=== PATIENT | female | born 1985 | race Caucasian/White ===

== ENCOUNTER 2024-12-03 09:25 | Emergency (ER) | payer OTHER, SELFPAY ==
[2024-12-03 09:28] VITALS: BP 175/97; PULSE 58; TEMP 36.6; O2SAT 100; BMI 43.5
--- NOTE | 2024-12-03 09:39 | XR_ITS ---
The [address] [address] Patient Name: GO NORTH MRN: [id number] date: 1985 Sex: F Assigned Patient Location: ER Current Patient Location: Accession/Order Number: [id number] Exam Date: 12/03/2024 09:58 Report Date: 12/03/2024 10:36 At the request of: HUMZA CORCORAN Procedure: XR foot RT min 3V HISTORY: Pain and swelling of the right foot and ankle for the past 4 days. The patient reportedly has a history of prior surgery on the right foot several years ago. 3 views right ankle 12/03/2024. 3 views right foot 12/03/2024. COMPARISON: Radiographs right ankle 03/07/2022. FINDINGS: Right ankle: No acute fracture or dislocation is seen. Large plantar calcaneal enthesophyte is again seen. There is a similar appearance of a linear lucency extending transversely over the distal fibular metadiaphysis compatible with the sequela of remote trauma and/or prior surgery in this region. There is an os peroneum again seen along the lateral aspect of the calcaneus. No significant joint space narrowing is seen. Right foot: No fracture, dislocation or joint space narrowing is seen. There is a hallux valgus deformity. No significant soft tissue swelling is seen. XR/XR foot RT min 3V IMPRESSION: 1. No acute fracture or dislocation of the right foot or ankle is seen. 2. A large plantar calcaneal enthesophyte is again seen. Electronically authenticated by: OVI SHEPPARD Date: 12/03/2024 10:36
--- NOTE | 2024-12-03 09:39 | XR_ITS ---
The [address] [address] Patient Name: GO NORTH MRN: [id number] date: 1985 Sex: F Assigned Patient Location: ER Current Patient Location: ER Accession/Order Number: [id number] Exam Date: 12/03/2024 09:58 Report Date: 12/03/2024 10:36 At the request of: HUMZA CORCORAN Procedure: XR ankle RT min 3V HISTORY: Pain and swelling of the right foot and ankle for the past 4 days. The patient reportedly has a history of prior surgery on the right foot several years ago. 3 views right ankle 12/03/2024. 3 views right foot 12/03/2024. COMPARISON: Radiographs right ankle 03/07/2022. FINDINGS: Right ankle: No acute fracture or dislocation is seen. Large plantar calcaneal enthesophyte is again seen. There is a similar appearance of a linear lucency extending transversely over the distal fibular metadiaphysis compatible with the sequela of remote trauma and/or prior surgery in this region. There is an os peroneum again seen along the lateral aspect of the calcaneus. No significant joint space narrowing is seen. Right foot: No fracture, dislocation or joint space narrowing is seen. There is a hallux valgus deformity. No significant soft tissue swelling is seen. XR/XR ankle RT min 3V IMPRESSION: 1. No acute fracture or dislocation of the right foot or ankle is seen. 2. A large plantar calcaneal enthesophyte is again seen. Electronically authenticated by: OVI SHEPPARD Date: 12/03/2024 10:36
--- NOTE | 2024-12-03 10:21 | US_ITS ---
[place] [id number] Patient Name: GO NORTH MRN: [id number] date: 1985 Sex: F Assigned Patient Location: ER Current Patient Location: ER Accession/Order Number: [id number] Exam Date: 12/03/2024 10:22 Report Date: 12/03/2024 11:05 At the request of: HUMZA CORCORAN Procedure: US venous doppler LE RT EXAM: US venous doppler LE RT HISTORY: R leg pain swelling COMPARISON: None. TECHNIQUE: Grayscale, color and Doppler FINDINGS: Region: Right leg Thrombus: None Flow: Normal Compressibility: Normal Augmentation: Normal US/US venous doppler LE RT IMPRESSION: No deep or superficial vein thrombus in the right leg Electronically authenticated by: CHARI REN Date: 12/03/2024 11:05
--- NOTE | 2024-12-03 10:25 | ED_ITS ---
HPI HPI - General Adult General Chief complaint: Extremity Problem, Nontraumatic Stated complaint: LOWER EXTREMITY SWELLING Time Seen by Provider: 12/03/24 09:26 Source: patient Mode of arrival: walk-in History of Present Illness HPI narrative: Patient seen complaining right lower extremity pain. She has a history of ankle and foot reconstructive surgery twice in the past. She said it has been about 2 years ago. She started to develop some pain and swelling and she has a little red joy on the anterior lower faustin. She also complains of pain behind the knee and some calf pain. She was worried about a blood clot so she came into the ER. She is not tachycardic she is not short of breath no chest pain. Oxygen saturation 100%. No fevers. No other complaints at this time. Related Data Previous Rx's ?Medication ?Instructions ?Recorded hydrocodone 5 mg-acetaminophen 325 1 tab PO Q6H PRN pain #10 tabs 12/03/24 mg tablet Allergies Allergy/AdvReac Type Severity Reaction Status Date / Time No Known Drug Allergies Allergy Verified 12/03/24 09:28 Opioid HPI Opioid Management Most Recent Opioid Data: No Data to Display Review of Systems ROS Status of ROS 10 or more systems reviewed and unremark able except as noted in history and below PFSH PFSH Social History Little interest or pleasure in doing things: not at all Feeling down, depressed, or hopeless: not at all Exam Narrative Exam Narrative: General: alert, no acute distress Cardiovascular: regular rate and rhythm, normal peripheral perfusion. Respiratory: Lungs CTA, respirations non labored. Extremities: Tenderness to palpation around the ankle joint area and calf and behind the knee. Very mild swelling. Old surgical scars. Normal distal pulses and sensation. Neurological: oriented x 4, LOC appropriate for age. Constitutional Vital Signs, click to edit/add: Last Vital Signs Temp 97.8 F 12/03/24 09:28 Pulse 58 L 12/03/24 09:28 Resp 16 12/03/24 09:28 BP 175/97 H 12/03/24 09:28 Pulse Ox 100 12/03/24 09:28 O2 Del Method Room Air 12/03/24 09:28 Course Vital Signs Vital signs: Vital Signs Temperature 97.8 F 12/03/24 09:28 Pulse Rate 58 L 12/03/24 09:28 Respiratory Rate 16 12/03/24 09:28 Blood Pressure 175/97 H 12/03/24 09:28 Pulse Oximetry 100 12/03/24 09:28 Oxygen Delivery Method Room Air 12/03/24 09:28 Temperature 97.8 F 12/03/24 09:28 Pulse Rate 58 L 12/03/24 09:28 Respiratory Rate 16 12/03/24 09:28 Blood Pressure 175/97 H 12/03/24 09:28 Pulse Oximetry 100 12/03/24 09:28 Oxygen Delivery Method Room Air 12/03/24 09:28 Medical Decision Making MDM Narrative Medical decision making narrative: Patient's x-ray are negative for acute findings. Doppler study negative for any DVT. I do not see any signs of joint infection or cellulitis. Most likely arthritic changes causing some pain and swelling. Patient placed in Jacobo wrap and counseled on compression stockings. Pain medication for home. Follow-up with her orthopedic doctor as needed. Return to ED if worsening symptoms or other concerns. Patient is comfortable care plan for home. Differential Diagnosis Differential Diagnosis: Fracture sprain strain dislocation DVT cellulitis Imaging Data Chest x-ray: Radiologist's impression: ITS Impressions Ankle X-Ray 12/03/24 09:39 IMPRESSION: 1. No acute fracture or dislocation of the right foot or ankle is seen. 2. A large plantar calcaneal enthesophyte is again seen. Electronically authenticated by: OVI SHEPPARD Date: 12/03/2024 10:36 Foot X-Ray 12/03/24 09:39 IMPRESSION: 1. No acute fracture or dislocation of the right foot or ankle is seen. 2. A large plantar calcaneal enthesophyte is again seen. Electronically authenticated by: OVI SHEPPARD Date: 12/03/2024 10:36 Venous Doppler Study 12/03/24 10:21 IMPRESSION: No deep or superficial vein thrombus in the right leg Electronically authenticated by: CHARI REN Date: 12/03/2024 11:05 Discharge Plan Discharge Chief Complaint: Extremity Problem, Nontraumatic Clinical Impression: Ankle arthritis Patient Disposition: Home, Self-Care Time of Disposition Decision: 11:10 Condition: Good Mode of Transportation: Private Vehicle Prescriptions / Home Meds: New hydrocodone-acetaminophen 5-325 mg tablet 1 tab PO Q6H PRN (Reason: pain) Qty: 10 0RF Print Language: Montenegrin Instructions: Arthritis (ED) Referrals: Physician,Non-Staff, MD [Primary Care Provider] - 1 week Discharge Date/Time: 12/03/24 11:26
== END 2024-12-03 11:26 | disposition home or self-care (01) ==
PROVIDERS: Emergency Provider Emergency Medicine
DX: M13.871 Other specified arthritis, right ankle and foot (principal)
CPT/HCPCS: 73610; 73630; 93971; 99284

== ENCOUNTER 2025-07-29 18:20 | Emergency (ER) | payer OTHER, SELFPAY ==
--- OUTSIDE RECORDS SUMMARY | 2013-07-30 07:00 | XMS_ITS | Continuity of Care Document ---
Author Organization [facility] Address [address] [place] [address] Phone Care Team Providers Care Manager Of Pharmacy Name Role Phone Pedro Cast MD Unavailable Unavailable Procedures Procedure Date Preven Meds E&m Estab Pt; 013 Cytopath Cerv/vag Thin Prep; R 13 Smear Prim W/intrpt; Wet Mnt 13 Preven Meds E&m Estab Pt; 012 Cytopath Cerv/vag Thin Prep; R 12 Offic/outpt E&m Estab Low-mod 2 Smear Prim W/intrpt; Wet Mnt W 12 Preven Meds E&m Estab Pt; 11 Cytopath Cerv/vag Thin Prep; R 11 Offic/outpt E&m Estab Low-mod 0 Smear Prim W/intrpt; Wet Mnt 10 Init Preven Meds E&m New Pt; 1 10 Cytopath Cerv/vag Thin Prep; R 10 Advance Directives Directive Yes / No Effective Date File Name No Information Encounters Encounter Description Practice Location Reason(s) For Visit Diagnoses Date Provider Providers Copied on Encounter Preven Meds E&m Estab Pt; [facility], [address], [place], [place], [id number], [place] tel:[phone] Jon oconnor (old) No Information Serene Vasquez. [address] [place], [place] [address] [address], [place]. tel:[phone] Preven Meds E&m Estab Pt; 18-39 [facility], [address], [place], [place], [address] [place] [address], tel:[phone] NEOB-Gahan na (old) No Information Serene Vasquez. [address] [place] [address], [facility], . tel:[phone] Offic/outpt E&m Estab Low-mod [facility], [address], [place], [place], [address] [place] [address], tel:[phone] NEOB-Gahan na (old) No Information Serene Vasquez. [address] [place] [address], [facility], . tel:[phone] Preven Meds E&m Estab Pt; 18-3 [facility], [address], [place], [place], [address] [place] [address], tel:[phone] NEOB-Gahan na (old) No Information Serene Vasquez. [address] [place] [address], [facility], . tel:[phone] Offic/outpt E&m Estab Low-mod [facility], [address], [place], [place], [address] [place] [address], tel:[phone] NEOB-Gahan na (old) No Information Serene Vasquez. [address] [place] [address], [facility], . tel:[phone] Init Preven Meds E&m New Pt; 1 [facility], [address], [place], [address] [place] [address], tel:[phone] NEOB-Gahan na (old) No Information Serene Vasquez. [address] [place] [address], [facility], . tel:[phone] Family History Family Member Type Diagnosis Age At Onset No Information Payers Payer name Insurance type Covered constitution party ID Authorjeromea tigrant(s) [facility] [id number] Social History Type Description Quantity Date Captured Comments Sex Female Smoking Status No Information Chief Complaint And Reason For Visit No Information Reason For Referral Reason For Referral No Information History Of Present Illness Encounter Date Complaint History Of Prese nt Illness No Information Functional Status Date Functional Assessmen t No Information Instructions Date Instruction Additional Infor mation No Information Assessments Type Assessment Date No Information Patient Care Teams Name Effective Dates (start - stop) Status Members No Information
--- OUTSIDE RECORDS SUMMARY | 2022-10-09 20:00 | XMS_ITS | Continuity of Care Document ---
Author Organization [facility] Address [address] [place] [address] Phone Care Team Providers Care Comb Winder Name Role Phone Nayely Mascorro PT Unavailable Unavailable Allergies, Adverse Reactions, Alerts Substance Reaction Status Criticality No Known allergies Medications Medication Instructions Dosage Effective Dates (start - stop) Status Comments Plus DHA 27 mg iron-1 mg-312 mg-250 mg oral pack TAKE 1 TAB & 1 CAPSULE BY MOUTH EVERY DAY - Active hydrocodone 5 mg-acetaminophen 325 mg tablet - Active ibuprofen 800 mg tablet - Ac tive methylergonovine 0.2 mg tablet - Active nitrofurantoin monohydrate/macrocrystals 100 mg capsule TAKE 1 TABLET BY MOUTH TWICE A DAY FOR 7 DAYS - Active fluticasone propionate 50 mcg/actuation nasal spray,suspension - Active prednisone 10 mg tablet - Ac tive fluconazole 150 mg tablet TAKE ONE TABLE T BY MOUTH ONCE, REPEAT IN 72 HOURS - Active Plus (calcium carbonate) 27 mg iron-1 mg tablet TAKE 1 TABLET BY MOUTH EVERY DAY - Active Procedures Procedure Date Physical Tx exercise Therapeutic activities (one on one) Neuromuscular re-edu Manual therapy 1+ regions Neuromuscular re-edu Physical Tx exercise Manual therapy 1+ regions Manual therapy 1+ regions Neuromuscular re-edu Neuromuscular re-edu Physical Tx exercise Manual therapy 1+ regions PT EVAL LOW COMPLEX 20 MIN Physical Tx exercise Neuromuscular re-edu Office/outpatient visit,new, mod 2021 X-ray exam of knee, 3 views Advance Directives Directive Yes / No Effective Date File Name No Information Encounters Encounter Description Practice Location Reason(s) For Visit Diagnoses Date Provider Providers Copied on Encounter [facility], [facility] [address] [place], [place], [facility], [place] tel:[phone] No Information Sep- 2 Ludwin Adler. [address], [place], [place], [id number] , [place]. tel:[phone] [facility], [facility] [place], [address], [place] tel:[phone] ON Therapy Dewey Pain in left kneeOther reduced mobilityMuscl e weakness (generalized) Effusion, left kneeChondroma lacia patellae, right kneePatellofe moral disorders, left knee Nov-0 2 Joeymeg Adler. [address], [place], [place], [id number] , [place]. tel:[phone] Referring Provider: Jaron Evans, [address], [place], [address] . tel:[phone] [facility], [address] [place], [address], [place] tel:[phone] ON Therapy Dewey Pain in left kneeOther reduced mobilityMuscl e weakness (generalized) Effusion, left kneeChondroma lacia patellae, right kneePatellofe moral disorders, left knee Oct- 2 Bettye Cope. [address], [place], [place], [id number] , [place]. tel:[phone] Referring Provider: Jaron Evans, [address], [place], [address] . tel:[phone] [facility], [facility] [place], [place], [facility], tel:[phone] ON Therapy Dewey Pain in left kneeOther reduced mobilityMuscl e weakness (generalized) Effusion, left kneeChondroma lacia patellae, right kneePatellofe moral disorders, left knee Aug- 9 2 Ludwin Nayely. [address], [place], [place], [id number] , [place]. tel:[phone] Referring Provider: Jaron Evans, [address], [place], [address] . tel:[phone] [facility], [facility] [place], [place], [facility], tel:[phone] ON Therapy Dewey Pain in left kneeOther reduced mobilityMuscl e weakness (generalized) Effusion, left kneeChondroma lacia patellae, right kneePatellofe moral disorders, left knee 2 Ludwin Adler. [address], [place], [place], [id number] , [place]. tel:[phone] Referring Provider: Jaron Evans, [address], [place], [address] . tel:[phone] [facility] [place] [address] [address] [place], [place], [facility], tel:[phone] ON Therapy Dewey Pain in left kneeOther reduced mobilityMuscl e weakness (generalized) Effusion, left kneeChondroma lacia patellae, right kneePatellofe moral disorders, left knee 3- 2 Eddi Whitea. [address], [place], [place], [id number] , [place]. tel:[phone] Referring Provider: Jaron Evans, [address], [place], [address] . tel:[phone] [facility], [address], [place], [address], [place] tel:[phone] ON Therapy Dewey Pain in left kneeOther reduced mobilityMuscl e weakness (generalized) Effusion, left kneeChondroma lacia patellae, right kneePatellofe moral disorders, left knee Oct-0 2 Ludwin Adler. [address] [facility], [place], [place], [id number] , [place]. tel:[phone] Referring Provider: Jaron Evans, [address] [facility] [address], [place], [address] . tel:[phone] Office/outpa tient visit,[facility], [address] [place], [address], tel:[phone] ON Dewey Chondromalaci a patellae, right kneePatellofe moral disorders, left kneeChondroma lacia patellae, right kneePatellofe moral disorders, left kneePatellofe moral disorders, right knee Sep- 2 Don Salmeron. [address], [place], [place], [id number] , [place]. tel:[phone] Referring Provider: Giselle Haskins, [address] [facility], [place], [address] . tel:[phone] Family History Family Member Type Diagnosis Age At Onset No Information Payers Payer name Insurance type Covered green party ID Liliane ortiz(sKaylee GARCIA ASA - [id number] Social History Type Description Quantity Date Captured [...]
--- OUTSIDE RECORDS SUMMARY | 2025-07-16 15:30 | XMS_ITS | Encounter Summary ---
Author Organization [facility] tem Address [id number] [address] [place] [address] Care Team Providers Care Oil Field Technician Name Role Phone No Pcp, No Pcp Primary Care Provider Unavailabl e Reason for Referral * Consultation (Routine) - Pending Review Specialty Diagnoses / Procedures Referred By Jeremías vázquez Referred To Contact Obstetrics & Gynecology / Obstetrics and Gynecology Diagnoses Abnormal uterine bleeding (AUB) Elizabeth Bender APRN-CNP [address] [place] [address] Phone: tel: fax: [facility] [address] [facility] [address] [address] Phone: tel: fax: Referral ID Status Reason Start Date Expiration Date Visits Requested Visits Authorized [id number] Pending Review Specialty Services Required 07/16/2025 07/16/2026 1 1 Reason for Visit * Reason Comments Annual Exam Encounter Details Date Type Department Care Team (Latest Contact Info) Description 07/16/2025 3:30 PM EDT Office Visit [facility] Ob[facility]s/Gynecolog y [address] [place] [phone] Elizabeth Bender APRN-CNP [address] [place] [address] Well woman exam with routine gynecological exam (Primary Dx); Screening mammogram for breast cancer; Abnormal uterine bleeding (AUB); Standardized adult depression screening tool completed Social History Tobacco Use Types Packs/Day Years Used Date Smoking Tobacco: Former Cigarettes 1 1 Q uit: 01/17/2023 Vaping/E-cigarettes Smokeless Tobacco: Never Tobacco Cessation:Counseling Given: Not Answered Alcohol Use Standard Drinks/Week Comments Not Currently 0 (1 standard drink = 0.6 oz pur e alcohol) Rarely PHQ-2 Answer Date Recorded Total Score 10 07/16/2025 Childcare Answer Date Recorded Childcare Unknown 04/30/2019 Employment Answer Date Recorded Employment Unknown 04/30/2019 Hunger Screening Answer Date Recorded Within the past 12 months we worried whether our food would run out before we got money to buy more. Never True 11/10/2024 Within the past 12 months th e food we bought just didn't last and we didn't have money to get more. Never True 11/10/2024 Purpose - Life Answer Date Recorded Purpose and direction in life Unknown Comments No Sex and Gender Information Value Date Recorded Sex Assigned at Female 12/19/2023 7:58 AM EST Legal Sex Female 12:05 PM EDT Gender Identity Female 12/19/2023 7:58 AM EST Sexual Orientation Straight 12/19/2023 7: 58 AM EST documented as of this encounter Last Filed Vital Signs Vital Sign Reading Time Taken Comments Blood Pressure 136/84 07/16/2025 3:44 PM EDT Pulse - - Temperature - - Respiratory Rate - - Oxygen Saturation - - Inhaled Oxygen Concentration - - Weight 116.4 kg (256 lb 9.6 oz) 07/16/2025 3:44 PM EDT Height 157.5 cm (5' 2 ) 07/16/2025 3:44 PM EDT Body Mass Index 46.93 07/16/2025 3:44 PM EDT documented in this encounter Functional Status * Over the past 2 weeks, how often have you been bothered by any of the following problems? Question Answer Date of Assessment Author Patient Health Questionnaire-2 Score 4 06/20 1:47 PM EDT Diana Beckett * Little interest or pleasure in doing things Answer Date of Assessment Author More than half the days 07/16/2025 1:47 PM EDT M ychart, Generic * Feeling down, depressed, or hopeless Answer Date of Assessment Author More than half the days 07/16/2025 1:47 PM EDT Shefali kearney, Generic * Question Answer Date of Assessment Author Patient Health Questionnaire-9 Score 10 06/20 1:47 PM EDT Sophy, Generic * Trouble falling or staying asleep, or sleeping too much Answer Date of Assessment Author More than half the days 07/16/2025 1:47 PM EDT Shefali kearney, Generic * Feeling tired or having little energy Answer Date of Assessment Author Several days 07/16/2025 1:47 PM EDT Sophy, Generic * Poor appetite or overeating Answer Date of Assessment Author Several days 07/16/2025 1:47 PM EDT Sophy, Generic * Feeling bad about yourself - or that you are a failure or have let yourself or your family down Answer Date of Assessment Author More than half the days 07/16/2025 1:47 PM EDT Shefali kearney, Generic * Trouble concentrating on things, such as reading the newspaper or watching television Answer Date of Assessment Author Not at all 07/16/2025 1:47 PM EDT Sophy, Generic * Moving or speaking so slowly that other people could have noticed? Or the opposite - being so fidgety or restless that you have been moving around a lot more than usual. Answer Date of Assessment Author Not at all 07/16/2025 1:47 PM EDT Sophy, Generic * Thoughts that you would be better off or hurting yourself in some way Answer Date of Assessment Author Not at all 07/16/2025 1:47 PM EDT Sophy, Generic * How difficult have these problems made it for you to do your work, take care of things at home, or get along with other people? Answer Date of Assessment Author Somewhat difficult 07/16/2025 1:47 PM EDT Bryant vázquez, Generic documented as of this encounter Patient Instructions * Attachments The following attachments cannot be sent through Care Everywhere. * Health risks of obesity (Malawian) * Calcium and vitamin D for bone health (Malawian) documented in this encounter Progress Notes * Elizabeth Bender, WILMA-PLANT CONTROL OPERATOR - 07/16/2025 3:30 PM EDT Annual Well Woman Visit 07/16/2025 Malka Meek is a pleasant 39 y.o. 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 Periods are irregular, lasting 5 days. Dysmenorrhea: severe, occurring throughout menses. Cyclic symptoms include anxiety, heavy bleeding and severe cramping. Days 2 and 3 and very heaviest per patient, and she has previously had an ablation 11/2018 and her periods never went away. Has intermenstrual bleeding. No pelvicpain. Patient declined STD testing today. Complaints today: Irregular periods Relationship status: not in a relationship The patient reports that there is not domestic violence in her life. Sexually active: No Sexual concerns: n/a Patient works: unemployed Non smoker (marijuana only) Children YES How many Two c-sections Current contraception: tubal ligation History of abnormal Pap smear: yes - Positive other high risk HPV 2017 Last pap: 06/12/24- Neg, Neg HPV Regular self breast exam: no Last mammogram: 06/13/24 Family history of breast cancer: yes - Maternal Grandmother, Maternal Aunt Family history of uterine or ovarian cancer: no Family history of pancreatic or prostate cancer: no Family history of colon cancer: no HPV vaccinated: No PHQ9 depression screenin, with negative self harm OB History 3 Para 2 Term 2 AB 1 Living 2 SAB 1 IAB Ectopic Multiple Live Births 2 The following portions of the patient's history were reviewed and updated as appropriate: allergies, current medications, past family history, past medical history, past social history, past surgicalhistory and problem list. MEDICAL HX Past Medical History: Diagnosis Date Ankle fracture Anxiety Depression 04/2005 SAB (spontaneous ) SURGICAL HX Past Surgical History: Procedure Laterality Date ARTHROSCOPY KNEE. REMOVAL CYST ON ACL Right 06/19/2018 Performed by Chucky Salter DO at [facility] 2004, 2011 2 CHOLECYSTECTOMY CYSTECTOMY D&C HYSTEROSCOPY WITH NOVASURE ABLATION N/A 12/18/2018 Performed by Elizabeth Casey MD at [facility] DILATION AND CURETTAGE N/A 12/18/2018 Performed by Elizabeth Casey MD at [facility] DILATION AND CURETTAGE OF UTERUS 2 TUBAL LIGATION FAMILY HX Family History Problem Relation Age of Onset Heart attack Mother Heart disease Mother Hypertension Mother Obesity Father Alcohol abuse Father Cancer Sister fallopian tube cancer Alcohol abuse Sister Breast cancer Maternal Grandmother unk age Leukemia Maternal Grandmother Hypertension Maternal Grandmother Heart attack Maternal Grandfather Hypertension Maternal Grandfather Alcohol abuse Maternal Grandfather Hypertension Paternal Grandmother Heart attack Paternal Grandfather Hypertension Paternal Grandfather Breast cancer Maternal Aunt unk age Wes Breast Cancer Neg Hx MEDS No current outpatient medications on file. No current facility-administered medications for this visit. ALLERGIES No Known Allergies Review of Systems Review of Systems Constitutional: Negative. Respiratory: Negative. Negative for chest tightness and shortness of breath. Cardiovascular: Negative. Negative for chest pain and palpitations. Gastrointestinal: Negative. Negative for constipation, diarrhea, nausea and vomiting. Endocrine: Negative. Genitourinary: Positive for menstrual problem. Negative for pelvic pain. Musculoskeletal: Negative. Skin: Negative. Allergic/Immunologic: Negative. Neurological: Negative. Hematological: Negative. Psychiatric/Behavioral: Negative. Objective BP 136/84 Ht 157.5 cm (5' 2 ) Wt 116.4 kg (256 lb 9.6 oz) BMI 46.93 kg/m?? Physical Exam Vitals and nursing note reviewed. Constitutional: Appearance: Normal appearance. HENT: Head: Normocephalic and atraumatic. Cardiovascular: Rate and Rhythm: Normal rate and regular rhythm. Pulses: Normal pulses. Heart sounds: Normal heart sounds. Pulmonary: Effort: Pulmonary effort is normal. Breath sounds: Normal breath sounds. Chest: Breasts: Breasts are symmetrical. Right: Normal. No mass, skin change or tenderness. Left: Normal. No mass, skin change or tenderness. Abdominal: General: Bowel sounds are normal. Palpations: Abdomen is soft. Genitourinary: General: Normal vulva. Labia: Right: No rash or lesion. Left: No rash or lesion. Vagina: Normal. Cervix: Normal. Uterus: Normal. Not enlarged and not tender. Adnexa: Right adnexa normal and left adnexa normal. Right: No mass, tenderness or fullness. Left: No mass, tenderness or fullness. Musculoskeletal: General: Normal range of motion. Cervical back: Normal range of motion and neck supple. Skin: General: Skin is warm and dry. Neurological: Mental Status: She is alert and oriented to person, place, and time. Psychiatric: Mood and Affect: Mood normal. Speech: Speech normal. Behavior: Behavior normal. Thought Content: Thought content normal. Judgment: Judgment normal. Assessment/Plan: Shelley was seen today for annual exam. Diagnoses and all orders for this visit: Well woman exam with routine gynecological exam Screening mammogram for breast cancer - Mammography screening bilateral with CAD; Future Abnormal uterine bleeding (AUB) - Ultrasound pelvic with transvaginal; Future - CBC without diff; Future - Thyroid profile includes TSH FT4; Future - [facility] [place], [place] - Consult; Future Standardized adult depression screening tool completed Patient desires hysterectomy consult. We discussed referral to [facility] Brown[facility]. BMI is above average; Discussed eating tips for weight loss and and exercise steps. Recommend breast self-awareness. Notify provider for any breast changes or concerns Discussed healthy lifestyle modifications. Educational material distributed. Follow up in 1 year for annual surgical nurse practitioner exam. Follow up as needed. Next pap due 2028 per ASCCP guidelines. Discussed taking a multivitamin. Discussed Calcium and Vitamin D for prevention of osteoporosis. Discussed recommendations for HPV vaccine between 9-45 yo. [facility] or the [facility] department. Discussed need for yearly mammogram after 40 yo. Discussed colon cancer screening recommendations to begin at 45 yo, patient to discuss with PCP. All questions answered. ARVIN PALMA [facility] GREGORIO Gee APRN-CNP 07/16/25 1614 documented in this encounter Plan of Treatment Upcoming Encounters Date Type Department Care Team (Late st Contact Info) Description 07/31/2025 9:45 AM EDT Appointment [facility] - Mammography/DEXA Imaging [address] [place] [phone] Elizabeth Bender APRN-CNP [address] [place] [address] 07/31/2025 10:00 AM EDT Appointment [facility] - Ultrasound [address] [place] [phone] Elizabeth Bender APRN-ERIC [address] [place] [address] 09/09/2025 10:30 AM EDT Office Visit [facility] [address] [place] [phone] Pedro Hernández, DO [address], [address] [place], [place] [phone] Scheduled Orders Name Type Priority Associated Diagnoses Orde r Schedule Mammography screening bilateral with CAD Imaging Routine Screening mammogram for breast cancer Expected: 07/16/2025, Expires: 07/16/2026 Ultrasound pelvic with transvaginal Imaging Routine Abnormal uterine bleeding (AUB) Expected: 07/16/2025, Expires: 07/16/2026 CBC without diff Lab Routine Abnormal uterine bleeding (AUB) 1 Occurrences starting 07/16/2025 until 07/17/2026 Thyroid profile includes TSH FT4 Lab Routine Abnormal uterine bleeding (AUB) 1 Occurrences starting 07/16/2025 until 07/16/2026 Scheduled Referrals Name Type Priority Associated Diagnoses Order Schedule [facility] [place], [place] - Consult Outpatient Referral Routine Abnormal uterine bleeding (AUB) 1 Occurrences starting 07/16/2025 until 07/16/2026 documented as of this encounter Visit Diagnoses Diagnosis Well woman exam with routine gynecological exam- Primary Routine gynecological examination Screening mammogram for breast cancer Abnormal uterine bleeding (AUB) Standardized adult depression screening tool completed documented in this encounter Additional Health Concerns Assessment Noted Time PHQ-9 Depression Total Score: 10 2 025 3:31 PM EDT A Body Mass Index follow-up plan has been documented for the patient 07/16/2025 4:14 PM EDT documented as of this encounter Care Teams Oil Field Technician Relationship Specialty Start Date End Date No Pcp, [place] [address] PCP - General Family Medicine 05/17/24 documented as of this encounter
[2025-07-29] VITALS (28 sets, daily range): BP systolic 113–157; BP diastolic 61–85; PULSE 55–96; TEMP 36.8–37.1; O2SAT 95–100; BMI 46.6
--- OUTSIDE RECORDS SUMMARY | 2025-07-29 18:26 | XMS_ITS | Clinical Summary ---
Author Organization [facility] Healthcare Address [address] [place] [address] Care Team Providers Care Shift Superintendent Caustic Cresylate Name Role Phone Unavailable Primary Care Provider Unavailabl e Social History Tobacco Use Types Packs/Day Years Used Date Smoking Tobacco: Never Assessed Comments Unknown Sex and Gender Information Value Date Recorded Sex Assigned at Not on file Legal Sex Female 8:08 PM EDT Gender Identity Not on file Sexual Orientation Not on file Last Filed Vital Signs Vital Sign Reading Time Taken Comments Blood Pressure 129/82 03/31/2019 12:00 PM EDT Pulse - - Temperature - - Respiratory Rate - - Oxygen Saturation - - Inhaled Oxygen Concentration - - Weight 126 kg (278 lb) 03/31/2019 12:00 PM EDT Height 158.8 cm (5' 2.5 ) 03/31/2019 12:00 PM ED T Body Mass Index 50.04 03/31/2019 12:00 PM EDT Plan of Treatment Not on file
--- OUTSIDE RECORDS SUMMARY | 2025-07-29 18:26 | XMS_ITS | Clinical Summary ---
Author Organization [facility] tem Address [id number] [address] [place] [address] Care Team Providers Care Medical Affairs Director Name Role Phone No Pcp, No Pcp Primary Care Provider Unavailabl e Allergies No known active allergies Medications * This document contains information received from the source organization and may not represent a complete record from that organization. brexpiprazole (REXULTI) 1 mg tabletIndicatio ns:Bipolar II disorder (CMS-HCC) Take 1 tablet (1 mg total) by mouth in the morning. 30 tablet 3 3 07/16/20 25 Discontinue d(Patient Stopped On Own) venlafaxine XR (EFFEXOR XR) 150 mg 24 hr capsuleIndicati ons:Bipolar II disorder (CMS-HCC),Gener alized anxiety disorder Take 1 capsule (150 mg total) by mouth in the morning. 30 capsule 3 3 07/16/20 25 Discontinue d(Patient Stopped On Own) cyclobenzaprine (FLEXERIL) 10 mg tablet Take 1 tablet (10 mg total) by mouth 2 (two) times a day as needed for muscle spasms. 10 tablet 4 07/16/20 25 Discontinue d(Therapy completed) busPIRone (BUSPAR) 10 mg tablet Twice Daily at 0900 and 1400 4 07/16/20 25 Discontinue d(Patient Stopped On Own) hydrOXYzine (VISTARIL) 50 mg capsule Q6H 4 07/16/20 25 Discontinue d(Patient Stopped On Own) benzonatate (TESSALON PERLES) 100 mg capsule Take 1 capsule (100 mg total) by mouth 3 (three) times a day as needed for cough. 21 capsule 4 07/16/20 25 Discontinue d(Therapy completed) Active Problems Problem Noted Date Diagnosed Date Family history of breast cancer 06/12/2024 Overview (06/12/2024): maternal aunt in her 30s and grandmother in her 50s Alcohol use disorder, moderate, dependence 03/02 Bipolar II disorder 03/22/2022 Generalized anxiety disorder 03/22/2022 Post traumatic stress disorder (PTSD) 03/22/2022 Abnormal vaginal bleeding 11/07/2018 BMI 45.0-49.9, adult 11/07/2018 Encounters Date Type Department Care Team Description 07/16/2025 3:30 PM EDT Office Visit [facility] Obstetrics/Gynecolog y [address] [place] [address] Elizabeth Bender, AGRICULTURAL ECONOMICS PROFESSOR-BOARD MIXER TENDER Well woman exam with routine gynecological exam (Primary Dx); Screening mammogram for breast cancer; Abnormal uterine bleeding (AUB); Standardized adult depression screening tool completed 07/16/2025 Travel from Last 3 Months Immunizations Immunization Administration Dates Next Due Tdap 03/02/2018 Family History Medical History Relation Name Comments Alcohol abuse Father Angel n counts Obesity Father Angel n counts Breast cancer Maternal Aunt unk age Alcohol abuse Maternal Grandfather Hiren Heart attack Maternal Grandfather Hiren Hypertension Maternal Grandfather Hiren Breast cancer Maternal Grandmother Isa unk ag e Hypertension Maternal Grandmother Isa Leukemia Maternal Grandmother Isa Heart attack Mother Bonita Heart disease Mother Bonita Hypertension Mother Bonita Heart attack Paternal Grandfather Angel Hypertension Paternal Grandfather Angel Hypertension Paternal Grandmother Kisha Alcohol abuse Sister Tanesha counts Cancer Sister Tanesha counts fallopian tube cancer Wes Breast Cancer Neg Hx Relation Name Status Comments Father Angel n counts Alive Maternal Aunt Maternal Grandfather Hiren Maternal Grandmother Isa Mother Bonita Alive Paternal Grandfather Angel Paternal Grandmother Kisha Sister Tanesha counts Social History Tobacco Use Types Packs/Day Years [...] Orientation Straight 12/19/2023 7: 58 AM EST Last Filed Vital Signs Vital Sign Reading Time Taken Comments Blood Pressure 136/84 07/16/2025 3:44 PM EDT Pulse 65 11/10/2024 5:28 PM EST Temperature 36.8 C (98.2 F) 11/10/2024 5:28 PM EST Respiratory Rate 20 11/10/2024 5:2 8 PM EST Oxygen Saturation 96% 11/10/2024 5:28 PM EST Inhaled Oxygen Concentration - - Weight 116.4 kg (256 lb 9.6 oz) 07/16/2025 3:44 PM EDT Height 157.5 cm (5' 2 ) 07/16/2025 3:44 PM EDT Body Mass Index 46.93 07/16/2025 3:44 PM EDT Plan of Treatment Upcoming Encounters Date Type Department Care Team (Late st Contact Info) Description 07/31/2025 9:45 AM EDT Appointment [facility] - Mammography/DEXA Imaging [address] [place] [phone] Elizabeth Bender, AGRICULTURAL ECONOMICS PROFESSOR-BOARD MIXER TENDER [address] [place] [address] 07/31/2025 10:00 AM EDT Appointment [facility] - Ultrasound [address] [place] [phone] Elizabeth Bender, AGRICULTURAL ECONOMICS PROFESSOR-BOARD MIXER TENDER [address] [place] [address] 09/09/2025 10:30 AM EDT Office Visit [facility] [address] [place] [phone] Pedro Hernández, DO [address], [address], [place] [address] Health Maintenance Due Date Last Done Comments COVID-19 Vaccine (2024-12 6 season) 2025 03/17/2021, 02/23/2021 Influenza Vaccine 07/20/2025 11/04/2018, 09/27/2005 Adult BMI Follow Up Plan 07/16/2026 07/16/2025 Adult BMI Screening 07/16/2026 07/16/2025 Depression Screening 07/16/2026 07/16/2025 Tobacco Screening 07/16/2026 07/16/2025 Pap Smear 06/12/2027 06/12/2024, 05/20, 02/11/2018, Additional history exists DTaP,Tdap and Td Vaccines (7 - Td or Tdap) 03/02/2028 03/02/2018, 08/24/1999, 01/30/1990, Additional history exists Medical Devices Not on file Procedures Procedure Name Priority Date/Time Associated Diagnosis Comments HIGH RISK HPV W/AMANDA Routine 06/12/2024 6:50 AM EDT Cervical smear, as part of routine gynecological examination from Last 3 Months or Most Recently Relevant to Health Maintenance Results * High risk HPV w/amanda (06/12/2024 6:50 AM EDT) Hpv specimen type ThinPrep 06/13/2024 6:51 AM EDT [facility] Hpv 16 Negative Negative^N egative 06/13/2024 11:42 AM EDT [facility] Hpv 18 Negative Negative^N egative 06/13/2024 11:42 AM EDT [facility] Other high risk hpv Negative Negative^N egative 06/13/2024 11:42 AM EDT [facility] Comment: HPV types 31,33,35,39,45,52,56,58,59,66 and 68 DNA were undetectable. THINP 06/12/2024 6:50 AM EDT 06/13/2024 6:51 AM EDT us Elizabeth Bender AGRICULTURAL ECONOMICS PROFESSOR-BOARD MIXER TENDER LAB BLOOD ORDERABLES Fin al Result [facility] [address] [facility] [place] [address] [facility] [address] [place] [address], [address] [place] [address] from Last 3 Months or Most Recently Relevant to Health Maintenance Insurance [place] Care Teams Medical Affairs Director Relationship Specialty Start Date End Date No Pcp[place] [address] PCP - General Family Medicine 05/17/24
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
--- OUTSIDE RECORDS SUMMARY | 2025-07-29 18:30 | XMS_ITS | CCD ---
Author Organization [facility] CliniSyde Care Team Providers Care Cyber Engineer Name Role Phone YOUNG LUU Unavailable Unavailable JONNY MAGUIRE Admitting Unavailable JONNY MAGUIRE Attending Unavailable HELGA ELLISON Referring Unavailable JONNY MAGUIRE Consulting Unavailable ENE REYEZ Consulting Unavailable HELGA ELLISON Primary Care Unavailable CAMPBELL, DR GABINO Mondragon Admitting Unavailabl e CAMPBELL, DR GABINO Mondragon Attending Unavailabl e JACQUES, DR ANDRÉS Mendieta Consulting Unavailable YAROSGONZALO Schmitz Consulting Unavailable DESIRE, MONIQUE Admitting Unavailable DESIRE, MONIQUE Attending Unavailable MISC, DR LANG Primary Care Unavailable HIGHLRICHARD, MONIQUE Consulting Unavailable GLENYS GIRARD Consulting Unavailable HIGHLANDERMONIQUE Admitting Unavailable HIGHLANDERMONIQUE Attending Unavailable MISC, DR LANG Primary Care Unavailable WAYNE, DR CHARI Butler Consulting Unavailable JACQUES, DR ANDRÉS Mendieta Consulting Unavailable MONIQUE PHIPPS Consulting Unavailable AGUBOSIMHELGA Consulting Unavailable WADE AWAD Consulting Unavailable AYYAGARITAMARA Consulting Unavailable CHARLENEPRINCESS WAGNER Consulting Unavailable ANA MAGUIREBERLY Admitting Unavailable ANA MAGUIREBERLY Attending Unavailable HELGA ELLISON Primary Care Unavailable JACQUES, DR ANDRÉS Mendieta Consulting Unavailable JONNY MAGUIRE Consulting Unavailable NO FAMILY, PHYSICIAN Primary Care Provider Unava ilable MD Chriss Morris Admit Provider MD Chriss Morris Attending Provider [phone] Chriss Morris Attending Unavailable Chriss Morris Admitting Unavailable NO FAMILY, PHYSICIAN Primary Care Unavailable NO FAMILY, PHYSICIAN Primary Care Unavailable Oziel Corona Attending Unavailab le Oziel Corona Admitting Unavailab le NO PCP, NO PCP Primary Care Unavailable ANDRÉS CHIANG Attending Unavailable IBETH FAJARDO Attending Unavailable IBETH FAJARDO Referring Unavailable NO PCP, NO PCP Primary Care Unavailable NO PCP, NO PCP Primary Care Unavailable TERI BUTLER Attending Unavailable NO PCP, NO PCP Primary Care Unavailable MAREK BARROS Attending Unavailable ELIZABETH EDWARDS Referring Unavailable NO PCP, NO PCP Primary Care Unavailable ELIZABETH EDWARDS Attending Unavailable ELIZABETH EDWARDS Referring Unavailable NO PCP, NO PCP Primary Care Unavailable NO PCP, NO PCP Primary Care Unavailable No Pcp, No Pcp Primary Care Provider Unavailrussell jensen No Pcp, No Pcp Primary Care Provider Unavailabl e ELIZABETH BLACKWOOD Attending Unavailable NO PCP, NO PCP Primary Care Unavailable Medications Current Medications Medication Drug Class(es) Dates Sig (Normalized) Sig (Original) ergocalciferol 1.25 mg oral capsule (1 source) Provitamin D2 Compound Start: 02-20-2024 Ergocalciferol (Vitamin D2) Active 1250 MCG PO Tu@0900 4 February 20, 2024 12:00am 24 hr nicotine 0.875 mg/hr transdermal system (1 source) Cholinergic Nicotinic Agonist Start: 02-20-2024 Nicotine Active 21 MG TRANSDERML Daily February 20, 2024 12:00am 24 hr venlafaxine 75 mg extended release oral capsule (3 sources) Serotonin and Norepinephrine Reuptake Inhibitor Start: 02-20-2024 take 75 mg by mouth once daily Venlafaxine Active 75 MG PO Daily February 20, 2024 12:00am Start: 02-06-2023 End: 07-16-2025 take 1 capsule by mouth every twenty-four hours in the morning venlafaxine XR (EFFEXOR XR) 150 mg 24 hr capsule Indications: Bipolar II disorder ([facility]) , Generalized anxiety disorder Take 1 capsule (150 mg total) by mouth in the morning. 30 capsule 3 02/06/2023 07/16/2025 Discontinued (Patient Stopped On Own) Completed/Discontinued Medications Medication Drug Class(es) Dates Sig (Normalized) Sig (Original) benzonatate 100 mg oral capsule (1 source) Non-narcotic Antitussive Start: 11-10-2024 End: 07-16-2025 take 1 capsule by mouth three times daily as needed for cough benzonatate (TESSALON PERLES) 100 mg capsule Take 1 capsule (100 mg total) by mouth 3 (three) times a day as needed for cough. 21 capsule 11/10/2024 07/16/2025 Discontinued (Therapy completed) brexpiprazole 1 mg oral tablet (3 sources) Atypical Antipsychotic Start: 01-08-2023 End: 07-16-2025 take 1 tablet by mouth in the morning brexpiprazole (REXULTI) 1 mg tablet Indications: Bipolar II disorder ([facility]) Take 1 tablet (1 mg total) by mouth in the morning. 30 tablet 3 01/08/2023 07/16/2025 Discontinued (Patient Stopped On Own) busPIRone hydrochloride 10 mg oral tablet (3 sources) Start: 02-20-2024 End: 07-16-2025 busPIRone (BUSPAR) 10 mg tablet Twice Daily at 0900 and 1400 02/20/2024 07/16/2025 Discontinued (Patient Stopped On Own) cyclobenzaprine hydrochloride 10 mg oral tablet (2 sources) Muscle Relaxant Start: 02-04-2024 End: 07-16-2025 take 1 tablet by mouth twice daily as needed for muscle spasms cyclobenzaprine (FLEXERIL) 10 mg tablet Take 1 tablet (10 mg total) by mouth 2 (two) times a day as needed for muscle spasms. 10 tablet 02/04/2024 07/16/2025 Discontinued (Therapy completed) hydrOXYzine pamoate 50 mg oral capsule (3 sources) Antihistamine Start: 02-20-2024 End: 07-16-2025 hydrOXYzine (VISTARIL) 50 mg capsule Q6H 02/20/2024 07/16/2025 Discontinued (Patient Stopped On Own) Problems Active Problems Problem Classification Problem Date Documented Da te Episodic/Chronic Acquired foot deformities (1 source) Other acquired deformities of right foot; Translations: [OTHER ACQUIRED DEFORMITIES RT FOOT] Onset: 04-11-2022 Episodic Alcohol-related disorders (2 sources) Moderate alcohol dependence; Translations: [Alcohol dependence, uncomplicated] Onset: 03-02-2023 03-02-2023 Chronic Anxiety disorders (6 sources) Acute stress reaction; Translations: [Mental health problem] Onset: 03-22-2022 03-22-2022 Chronic E Codes: Fall (1 source) Fall Onset: 02-04-2024 Influenza (1 source) Influenza Onset: 11-10-2024 Mood disorders (6 sources) Recurrent major depressive episodes; Translations: [Major depressive disorder, recurrent, unspecified] Onset: 03-22-2022 02-18-2024 Chronic Other acquired deformities (1 source) Contracture, right ankle; Translations: [CONTRACTURE RIGHT ANKLE] Onset: 04-11-2022 Chronic Other connective tissue disease (1 source) Pain in right foot; Translations: [PAIN IN RIGHT FOOT] Onset: 04-11-2022 Episodic Other connective tissue disease (1 source) Plantar fascial fibromatosis; Translations: [PLANTAR FASCIAL FIBROMATOSIS] Onset: 04-11-2022 Episodic Other female genital disorders (2 sources) Abnormal vaginal bleeding; Translations: [Abnormal uterine and vaginal bleeding, unspecified] Onset: 11-07-2018 11-07-2018 Chronic Other female genital disorders (2 sources) Abnormal uterine bleeding; Translations: [Abnormal uterine and vaginal bleeding, unspecified] 07-16-2025 Chronic Other female genital disorders (1 source) Abnormal uterine and vaginal bleeding, unspecified; Translations: [Abnormal uterine and vaginal bleeding, unspecified] Onset: 07-16-2025 Chronic Other non-traumatic joint disorders (1 source) Other instability, right ankle; Translations: [OTHER INSTABILITY RIGHT ANKLE] Onset: 04-11-2022 Episodic Other non-traumatic joint disorders (5 sources) Pain in right ankle and joints of right foot; Translations: [PAIN IN RIGHT ANKLE] Onset: 03-07-2022 Episodic Other non-traumatic joint disorders (5 sources) Other specified joint disorders, right ankle and foot; Translations: [OTHER SPEC JOINT D/O RT ANKLE FOOT] Onset: 04-03-2022 Episodic Other nutritional; endocrine; and metabolic disorders (1 source) Obesity caused by energy imbalance; Translations: [Other obesity due to excess calories] Onset: 11-07-2018 11-07-2018 Chronic Other nutritional; endocrine; and metabolic disorders (1 source) Body mass index 40+ - severely obese; Translations: [Body mass index (BMI) 45.0-49.9, adult] Onset: 11-07-2018 07-16-2025 Chronic Other screening for suspected conditions (not mental disorders or infectious disease) (4 sources) Encounter for screening mammogram for malignant neoplasm of breast; Translations: [Patient encounter status] Onset: 06-13-2024 06-12-2024 Episodic Screening and history of mental health and substance abuse codes (2 sources) Standardized adult depression screening tool completed ; Translations: [Encounter for screening for depression] 06-12-2024 Episodic Substance-related disorders (1 source) Nicotine dependence, cigarettes, uncomplicated; Translations: [NICOTINE DEPEND CIGARETTES UNCOMP] Onset: 04-11-2022 Chronic Unclassified (1 source) Suicidal Onset: 02-17-2024 Unclassified (1 source) FALL - HEAD INJURY, NECK PAIN Onset: 02-04-2024 Unclassified (1 source) Annual Exam Onset: 07-16-2025 Viral infection (1 source) Viral infection, unspecified; Translations: [Viral infection, unspecified] Onset: 11-10-2024 Episodic Past or Other Problems Problem Classification Problem Date Documented Da te Episodic/Chronic Administrative/social admission (1 source) Other problems related to medical facilities and other health care; Translations: [Other specified conditions influencing health status] 06-12-2024 Episodic Mood disorders (3 sources) Mood disorders; Translations: [Depression, unspecified] Onset: 06-12-2024 Resolved: 07-16-2025 06-12-2024 Other injuries and conditions due to external causes (1 source) Unspecified injury of head, initial encounter; Translations: [Unspecified injury of head, initial encounter] Onset: 02-04-2024 Episodic Residual codes; unclassified (2 sources) Family history of breast cancer; Translations: [Family history of malignant neoplasm of breast] Onset: 06-12-2024 06-12-2024 Episodic Sprains and strains (7 sources) Strain of muscle(s) and tendon(s) of peroneal muscle group at lower leg level, right leg, sequela; Translations: [Sprain of unspecified ligament of right ankle, initial encounter] Onset: 07-28-2021 Episodic Suicide and intentional self-inflicted injury (1 source) Suicidal ideations; Translations: [Suicidal ideations] Onset: 02-17-2024 Episodic Unclassified (2 sources) Onset: 06-12-2024 Resolved: 07-16-2025 06-12-2024 Results Test Name Value Interpretation Reference Range Facility SARS/FLU A+B/RSV by NAAT/[facility] 11-10-2024 SARS/FLU A+B/RSV by NAAT/Molecular FLU A PCR Negative (qualifier value) FLU B PCR Negative (qualifier value) RSV by PCR Negative (qualifier value) SARS CoV 2 Not detected (qualifier value) NOTE The Xpert Xpress SARS-CoV-2/Flu/RSV Plus test is a rapid, multiplexed real-time RT-PCR test intended for the simultaneous qualitative detection and differentiation of SARS-CoV-2, influenza A, influenza B and respiratory syncytial virus (RSV) viral RNA from individuals suspected of respiratory viral infection consistent with COVID-19 by their healthcare provider. This test has not been validated in asymptomatic patients. The Xpert Xpress SARS-CoV-2 test is intended for use by qualified and trained operators who are performing tests using either NextGxDX or Tandem systems and is limited to laboratories that meet the CLIA requirements to perform high and moderate complexity tests. The Xpert Xpress SARS-CoV-2/Flu/RSV Plus is only for use under the Food and Drug Administration's Emergency Use Authorization. Results are for the simultaneous detection and differentiation of SARS-CoV-2, influenza A, influenza B and RSV nucleic acids in clinical specimens. SARS-CoV-2, influenza A, influenza B and RSV RNA identified by this test are generally detectable in upper respiratory samples during the acute phase of infection. Positive results are indicative of the presence of the identified virus, but do not rule out bacterial infection or co-infection with other pathogens not detected by this test. Clinical correlation with patient history and other diagnostic information is necessary to determine patient infection status. The agent detected may not be the definite cause of disease. Negative results do not preclude SARS-CoV-2, influenza A, influenza B and RSV infection and should not be used as the sole basis for treatment or other patient management decisions. Negative results must be combined with clinical observations, patient history and epidemiological information. An Invalid result may occur with specimen-associated inhibition unable to be resolved with specimen repeat. Fact Sheet for Healthcare Providers: https://www.fda.gov/media/ 046857/download Fact Sheet for Patients: https://www.fda.gov/media/ 286169/download Normal [facility] Comment on above: Performed By: #### C OVFLR ####[facility] ([id number])[address] [place] [address] XR CHEST 2 VWSon 11-10-2024 XR CHEST 2 VWS XR CHEST 2 VWS HISTORY: A 38-year-old female with the history of the cough, shortness of breath and fever for 5 days. EXAM/TECHNIQUE: CHEST: PA and lateral views COMPARISON: Comparison is made with prior chest examination of 08/06/2023. FINDINGS: Both lungs and costophrenic angles are clear. There is no evidence of pulmonary infiltrate or acute pulmonary pathology. The cardiac silhouette is within normal limits. The trachea is in midline. The mediastinum is otherwise unremarkable. The hemidiaphragms are normal in position. The bony rib cage is intact. IMPRESSION: * No evidence of pulmonary infiltrate, acute pulmonary pathology or significant interval change. Finalized by Vinicius Crowe MD on 11/10/2024 7:51 PM Normal [facility] MAMM SCREENING BILATERAL W C chemist internship 06-16-2024 MAMM SCREENING BILATERAL W CAD MAMM SCREENING BILATERAL W CAD EXAM: MAMM SCREENING BILATERAL W CAD, 06/13/2024 11:08 AM CLINICAL INDICATIONS: Screening, Encounter for screening mammogram for malignant neoplasm of breast COMPARISON: No prior studies currently available for comparison. TECHNIQUE: Bilateral digital tomosynthesis MLO and CC views of the breasts were obtained, with creation of synthetic 2D views. Computer aided detection was utilized. FINDINGS: There are scattered areas of fibroglandular density. There are no suspicious masses, calcifications, or areas of architectural distortion. IMPRESSION: No mammographic evidence of malignancy. BI-RADS: BI-RADS 1 - Negative Recommendation: Routine screening mammogram in 1 year. Finalized by Surjit Brody MD on 06/16/2024 8:36 AM 1 b MAMM 1 YR Normal [facility] Cytologyon 06-12-2024 Cytology Normal [facility] Comment on above: Result Comment: [facility] [address] [place] [address] Gynecologic Cytology Consultation Patient Name:YULISSA MEEK:1985 (Age: 38)Gender:FTaken:06/12/2024eported:06/21/2024hysician(s):Elizabeth Edwards, [facility] ([phone])Copy To: Rec. #:[id number]: #[id number] Final Cytologic Interpretation ThinPrep Pap Test (Cervical): Satisfactory for evaluation. A transformation zone component is present. NEGATIVE FOR INTRAEPITHELIAL LESION OR MALIGNANCY. lrd/06/21/2024 [facility] [address] [place] [address], License number: [id number]. Electronically Signed Out By TÑOO Arriola, (ASCP) Date of Last Menstrual Period: 06/11/24 Other Clinical Conditions: Z01.419 Tower Switch Operator exam wo/abn findings Source of Specimen ThinPrep Pap Test (Cervical) Thin Prep Pap (PROCESS ENGINEERING INTERN) Fee Code(s): G0145 The Pap test is a screening test with an inherent, but low, probability of error. The Pap test is primarily effective for the diagnosis and prevention of squamous cell carcinoma. Regular screening is critical for prevention. ThinPrep liquid-based slides, which meet the Community Health Program Coordinator criteria for automated screening, have been screened by the ThinPrep Imaging System (as of 08/05/07) along with an additional manual rescreening by a license issuer and, if indicated, by a pathologist. HIGH RISK HPV W/GENOon 06-12 HPV 31+33+35+39+45+51+52+ 56+58+59+66+68 DNA CJ+probe Ql (Cvx) HPV SPECIMEN TYPE ThinPrep HPV 16 Negative (qualifier value) HPV 18 Negative (qualifier value) OTHER HIGH RISK HPV Negative (qualifier value) HPV types 31,33,35,39,45,52,56,58,59 ,66 and 68 DNA were undetectable. Normal [facility] Comment on above: Performed By: #### 7 1431-1 ####[facility] ([id number])[address] [place] [address] LAB ([id number])[address] [place] [address], [address] [place] [address] CBC AND AUTO DIFFon 05-17-20 24 ABSOLUTE BASOPHIL 0.1 X10E9/L Normal 0.0-0.2 [facility] Comment on above: Performed By: #### Juan GABRIEL, 61797-6, 5643-2, CMP, 13226-1, 6948-4 #### [facility] ([id number]) [address] [place] [address] ABSOLUTE NEUTROPHIL 3.8 X10E9/L Normal 1.5-6.6 [facility] Comment on above: Performed By: #### Juan GABRIEL, 50881-2, 5643-2, CMP, 38345-8, 48-4 #### [facility] ([id number]) [address] [place] [address] 44053 Basophils/100 WBC (Bld) 0.7 % Normal [facility] Comment on above: Performed By: #### Juan GABRIEL, 89325-2, 5643-2, CMP, 52555-0, 6948-4 #### [facility] ([id number]) [address] [place] [address] 21198 Eosinophils (Bld) [#/Vol] 0.1 10*3/uL Normal 0.0-0.4 [facility] Comment on above: Performed By: #### Juan GABRIEL, 47123-2, 5643-2, CMP, 68549-1, 6948-4 #### [facility] ([id number]) [address] [place] [address] 47416 Eosinophils/100 WBC (Bld) 2.0 % Normal [facility] Comment on above: Performed By: #### Juan GABRIEL, 57967-1, 5643-2, CMP, 93108-7, 6948-4 #### [facility] ([id number]) [address] [place] [address] 47397 Erythrocyte distribution width (RBC) [Ratio] 14.3 % Normal 11.5-15.0 [facility] Comment on above: Performed By: #### Juan GABRIEL, 60223-2, 5643-2, CMP, 26020-5, 48-4 #### [facility] ([id number]) [address] [place] [address] 55978 Hematocrit (Bld) [Volume fraction] 39.1 % Normal 35-47 [facility] Comment on above: Performed By: #### Juan GABRIEL, 06527-3, 5643-2, CMP, 15184-6, 48-4 #### [facility] ([id number]) [address] [place] [address] 34604 Hemoglobin (Bld) [Mass/Vol] 13.5 g/dL Normal 11.7-15.5 [facility] Comment on above: Performed By: #### Juan GABRIEL, 96836-6, 5643-2, CMP, 54207-0, 6947-4 #### [facility] ([id number]) [address] [place] [address] 53559 Lymphocytes (Bld) [#/Vol] 2.2 10*3/uL Normal 1.0-3.5 [facility] Comment on above: Performed By: #### Juan GABRIEL, 19518-4, 5643-2, CMP, , 6947-4 #### [facility] ([id number]) [address] [place] [address] 29624 Lymphocytes/100 WBC (Bld) 31.5 % Normal [facility] Comment on above: Performed By: #### Juan GABRIEL, 81182-8, 5643-2, CMP, 46322-9, 6947-4 #### [facility] ([id number]) [address] [place] [address] 65805 MCH (RBC) [Entitic mass] 28.9 pg Normal 27-34 [facility] Comment on above: Performed By: #### Juan GABRIEL, 73908-6, 5643-2, CMP, 48829-3, 48-4 #### [facility] ([id number]) [address] [place] [address] 15287 MCHC (RBC) [Mass/Vol] 34.5 g/dL Normal 32-36 [facility] Comment on above: Performed By: #### Juan GABRIEL, 36378-6, 5643-2, CMP, 55503-7, 48-4 #### [facility] ([id number]) [address] [place] [address] 89109 MCV (RBC) [Entitic vol] 84 fL Normal 80-100 [facility] Comment on above: Performed By: #### Juan GABRIEL, 80905-5, 5643-2, CMP, 79233-5, 48-4 #### [facility] ([id number]) [address] [place] [address] 34111 Monocytes (Bld) [#/Vol] 0.8 10*3/uL Normal 0-0.9 [facility] Comment on above: Performed By: #### Juan GABRIEL, 40565-4, 5643-2, CMP, 13630-8, 48-4 #### [facility] ([id number]) [address] [place] [address] 20647 Monocytes/100 WBC (Bld) 11.0 % Normal [facility] Comment on above: Performed By: #### Juan BCA, 09403-0, 5643-2, CMP, 23747-1, 48-4 #### [facility] ([id number]) [address] [place] [address] 37484 Neutrophils/100 WBC (Bld) 54.8 % Normal [facility] Comment on above: Performed By: #### Juan GABRIEL, 44378-7, 5643-2, CMP, 38051-0, 6948-4 #### [facility] ([id number]) [address] [place] [address] 86553 Platelet mean volume (Bld) [Entitic vol] 8.8 fL Normal 7-12 [facility] Comment on above: Performed By: #### Juan GABRIEL, 61489-7, 5643-2, CMP, 13216-5, 6948-4 #### [facility] ([id number]) [address] [place] [address] 17573 Platelets (Bld) [#/Vol] 233 10*3/uL Normal 150-450 [facility] Comment on above: Performed By: #### Juan GABRIEL, 30670-7, 5643-2, CMP, 09432-1, 6948-4 #### [facility] ([id number]) [address] [place] [address] 53359 RBC COUNT 4.66 X10E12/L Normal 3.80-5.20 [facility] Comment on above: Performed By: #### Juan GABRIEL, 31525-5, 5643-2, CMP, 30479-7, 6948-4 #### [facility] ([id number]) [address] [place] [address] 65084 WBC (Bld) [#/Vol] 6.9 10*3/uL Normal 4.0-11.0 [facility] Comment on above: Performed By: #### Juan GABRIEL, 42230-6, 5643-2, CMP, 96730-2, 6948-4 #### [facility] ([id number]) [address] [place] [address]231 COMPREHENSIVE METABOLIC PANE [place] 05-17-2024 Albumin [Mass/Vol] 3.9 g/dL Normal 3.2-5.3 [facility] Comment on above: Performed By: #### Juan BCA, 23579-4, 5643-2, CMP, 86628-1, 6948-4 ####[facility] ([id number])[address] [place] [address] [place] [address] ALP [Catalytic activity/Vol] 67 U/L Normal 39-130 [facility] Comment on above: Performed By: #### C BCA, 44779-3, 5643-2, CMP, 77248-0, 6948-4 ####[facility] ([id number])[address] [place] [address] 35148 ALT [Catalytic activity/Vol] 24 U/L Normal 0-31 [facility] Comment on above: Performed By: #### C BCA, 62948-2, 5643-2, CMP, 10116-5, 48-4 ####[facility] ([id number])[address] [place] [address] 64653 Anion gap [Moles/Vol] 3 mmol/L Low 5-15 [facility] Comment on above: Performed By: #### Juan BCA, 13767-1, 5643-2, CMP, 01693-3, 6948-4 ####[facility] ([id number])[address] [place] [address] 91103 AST [Catalytic activity/Vol] 28 U/L Normal 0-41 [facility] Comment on above: Performed By: #### Juan BCA, 53679-9, 5643-2, CMP, 39599-1, 6948-4 ####[facility] ([id number])[address] [place] [address] 87258 Bilirubin [Mass/Vol] 0.2 mg/dL Low 0.3-1.2 [facility] Comment on above: Performed By: #### C BCA, 32423-6, 5643-2, CMP, 31880-0, 6948-4 ####[facility] ([id number])[address] [place] [address] [place] [address] Calcium [Mass/Vol] 8.4 mg/dL Low 8.5-10.5 [facility] Comment on above: Performed By: #### C BCA, 09071-3, 5643-2, CMP, 79668-9, 6948-4 ####[facility] ([id number])[address] [place] [address] 87510 Chloride [Moles/Vol] 107 mmol/L Normal 98-109 [facility] Comment on above: Performed By: #### C BCA, 28496-8, 5643-2, CMP, 37698-1, 48-4 ####[facility] ([id number])[address] [place] [address] 52460 CO2 [Moles/Vol] 24 mmol/L Normal 22-32 [facility] Comment on above: Performed By: #### C BCA, 53440-2, 5643-2, CMP, 70396-2, 6948-4 ####[facility] ([id number])[address] [place] [address] 61490 Creatinine [Mass/Vol] 0.91 mg/dL Normal 0.40-1.00 [facility] Comment on above: Result Comment: METH OD TRACEABLE TO IDMS STANDARD Performed By: #### C NERY, 45995-7, 5643-2, CMP, 35868-5, 6948-4 ####[facility] ([id number])[address] [place] [address] 25206 GFR/1.73 sq M.predicted among non-blacks MDRD (S/P/Bld) [Vol rate/Area] 82 mL/min/{1.73_m2} Normal >59 [facility] Comment on above: Result Comment: Reported eGFR is based on the CKD-EPI 2020 equation that does not use a race coefficient. Performed By: #### C BCA, 83243-8, 5643-2, CMP, 47882-3, 6948-4 ####[facility] ([id number])[address] [place] [address] 64124 Glucose [Mass/Vol] 107 mg/dL High 65-99 [facility] Comment on above: Performed By: #### C BCA, 51814-5, 5643-2, CMP, 31498-3, 6948-4 ####[facility] ([id number])[address] [place] [address] 86437 Potassium [Moles/Vol] 3.7 mmol/L Normal 3.5-5.0 [facility] Comment on above: Performed By: #### C BCA, 65438-9, 5643-2, CMP, 53403-9, 6948-4 ####[facility] ([id number])[address] [place] [address] 74919 Protein [Mass/Vol] 7.6 g/dL Normal 6.0-8.0 [facility] Comment on above: Performed By: #### Juan BCA, 70937-6, 5643-2, CMP, 27550-1, 6948-4 ####[facility] ([id number])[address] [place] [address] 38788 Sodium [Moles/Vol] 134 mmol/L Normal 134-146 [facility] Comment on above: Performed By: #### Juan BCA, 18498-4, 5643-2, CMP, 68203-1, 6948-4 ####[facility] ([id number])[address] [place] [address] 69510 Urea nitrogen [Mass/Vol] 15 mg/dL Normal 5-23 [facility] Comment on above: Performed By: #### Juan BCA, 07529-0, 5643-2, CMP, 73241-7, 6948-4 ####[facility] ([id number])[address] [place] [address] 95401 ETHANOLon 05-17-2024 Ethanol [Mass/Vol] mg/dL Normal 0.00-0.08 [facility] Comment on above: Result Comment: This report is intended for use in clinical monitoring or management of patients. Performed By: #### C BCA, 84223-4, 5643-2, CMP, 90657-0, 6948-4 #### [facility] ([id number]) [address] [place] [address] 41134 MAGNESIUMon 05-17-2024 Magnesium [Mass/Vol] 1.8 mg/dL Normal 1.8-2.6 [facility] Comment on above: Performed By: #### C BCA, 51023-3, 5643-2, CMP, 73860-2, 6948-4 ####[facility] ([id number])[address] [place] [address] 58594 Troponin I.cardiac High sens itivity method [Mass/Vol]on 05-17-2024 TROPONIN I, HIGH SENSITIVITY 3 ng/L Normal <16 [facility] Comment on above: Performed By: #### C BCA, 41428-2, 5643-2, CMP, 47659-7, 6948-4 #### [facility] ([id number]) [address] [place] [address] 24408 lamoTRIgine [Mass/Vol]on Lamotrigine, S 1.3 mcg/mL Low 3.0-15.0 [facility] Comment on above: Result Comment: NOTE ADDITIONAL INFORMATION This test was developed and its performance characteristics determined by [facility] in a manner consistent with CLIA requirements. This test has not been cleared or approved by the U.S. Food and Drug Administration. Test Performed by: [facility] [address] [place] [address] Sales Account Executive: Candelaria Khan Ph.D.; CLIA# [id number] Performed By: #### Juan BCA, 98733-1, 5643-2, CMP, 46404-8, 6948-4 ####[facility] ([id number])[address] [place] [address] Cholesterol [Mass/volume] in Serum or PlasmaOrdered By: Chriss Morris on 02-18-2024 Cholesterol [Mass/Vol] 126 mg/dL Low 140-200 [facility] Comment on above: Chol less than 200 m g/dl low riskChol 201-239 mg/dl borderline riskChol 240 mg/dl and greater high risk Result Comment: Chol less than 200 mg/dl low risk Chol 201-239 mg/dl borderline risk Chol 240 mg/dl and greater high risk Performed By: #### V [id number], TSH3 wRFLX, LIPID #### [facility] [address] [place] [address] [place] Cholesterol in LDL Calc [Mas s/Vol]Ordered By: Chriss Morris on 02-18-2024 Cholesterol in LDL [Mass/Vol] 72 mg/dL 0-100 [facility] Comment on above: LDL ATP III CLASSIFI CATIONLDL less than 100 mg/dL OptimalLDL 100-129 mg/dL Near or above optimalLDL 130-159 mg/dL Borderline highLDL 160-189 mg/dL HighLDL greater than 189 mg/dL Very high Cholesterol in VLDL Calc [Ma ss/Vol]Ordered By: Chriss Morris on 02-18-2024 Cholesterol in VLDL [Mass/Vol] 17 mg/dL [facility] Lipid Panelon 02-18-2024 LDL Cholesterol,Calculate d 72 mg/dL Normal 0-100 [facility] Comment on above: Result Comment: LDL ATP III CLASSIFICATION LDL less than 100 mg/dL Optimal LDL 100-129 mg/dL Near or above optimal LDL 130-159 mg/dL Borderline high LDL 160-189 mg/dL High LDL greater than 189 mg/dL Very high Performed By: #### V [id number], TSH3 wRFLX, LIPID #### [facility] [address] [place] [address] [place] Triglyceride w/Reflex 86 mg/dL Normal 0-149 [facility] Comment on above: Result Comment: TRIG ATP III CLASSIFICATION TRIG less than 150 mg/dL Normal TRIG 150-199 mg/dL Borderline high TRIG 200-500 mg/dL High TRIG greater than 500 mg/dL Very high Standard traceable to the Center for Disease Conrtrol and Prevention (CDC) test method. Performed By: #### V [id number], TSH3 wRFLX, LIPID #### [address] VLDL CHOLESTEROL 17 mg/dL Normal [facility] Comment on above: Performed By: #### V [id number], TSH3 wRFLX, LIPID #### [address] Serum or plasma high density lipoprotein (HDL) cholesterol measurementOrdered By: Chriss Morris on 02-18-2024 Cholesterol in HDL [Mass/Vol] 37 mg/dL Normal 23-92 [facility] Comment on above: HDL CHOL ATP-III CLA SSIFICATION Cardiovascular RiskHDL > or equal to 60 mg/dL LOWHDL < 40 mg/dL HIGH Result Comment: HDL CHOL ATP-III CLASSIFICATION Cardiovascular Risk HDL > or equal to 60 mg/dL LOW HDL < 40 mg/dL HIGH Performed By: #### V [id number], TSH3 wRFLX, LIPID #### [address] Serum or plasma total choles terol/high density lipoprotein (HDL) cholesterol mass ratOrdered By: Chriss Morris on 02-18-2024 Cholesterol.total/Cho lesterol in HDL [Mass ratio] 3.4 {ratio} Normal <5.0 [facility] Comment on above: Performed By: #### V [id number], TSH3 wRFLX, LIPID #### [facility] [address] [place] [address] Thyroid Stim Hormone w/Rflxo n 02-18-2024 Thyroid Stim Hormone w/Rflx 0.99 u[iU]/mL Normal 0.45-5.33 [facility] Comment on above: Performed By: #### V [id number], TSH3 wRFLX, LIPID #### [address] Thyrotropin [Units/volume] i n Serum or PlasmaOrdered By: Chriss Morris on 04-01-2024 TSH Qn 0.99 m[IU]/L 0.45-5.33 [facility] Triglyceride [Mass/volume] i n Serum or PlasmaOrdered By: Chriss Morris on 02-18-2024 Triglyceride [Mass/Vol] 86 mg/dL 0-149 [facility] Comment on above: TRIG ATP III CLASSIF ICATIONTRIG less than 150 mg/dL NormalTRIG 150-199 mg/dL Borderline highTRIG 200-500 mg/dL High TRIG greater than 500 mg/dL Very highStandard traceable to the Center for Disease Conrtrol and Prevention (CDC) test method. Vitamin D 25 Hydroxy Totalon 02-18-2024 Vitamin D 25 Hydroxy Total 11.3 ng/mL Low 30-100 [facility] Comment on above: Result Comment: GUY MIN D STATUS 25(OH)VITAMIN D RANGE (ng/mL) Deficient <20 Insufficient 20 to <30 Sufficient 30 to 100 Reference: Jeremias Roca, Irina CINTRON, et al. Evaluation,treatment, and prevention of vitamin D deficiency; an Endocrine Society clinical practice guideline. JCEM. 2010; 96(7):1911-30. PERFORMED BY: [place] [address] PATHOLOGIST BREAKER [employer]ILER LOREN MORRISON M.D. Performed By: #### V [id number], TSH3 wRFLX, LIPID #### [address] Vitamin D+Metabolites [Mass/ volume] in Serum or PlasmaOrdered By: Chriss Morris on 02-18-2024 Vitamin D+Metabolites [Mass/Vol] 11.3 ng/mL 30-100 [facility] Comment on above: VITAMIN D STATUS 25( [place])VITAMIN D RANGE (ng/mL) Deficient <20 Insufficient 20 to <30Sufficient 30 to 100Reference: Jeremias Roca, Irina CINTRON, et al. Evaluation,treatment, and prevention of vitamin D deficiency; an Endocrine Society clinical practice guideline. JCEM. 2010; 96(7):1911-30. CBC AND AUTO DIFFon 02-17-20 24 ABSOLUTE BASOPHIL 0.0 X10E9/L Normal 0.0-0.2 [facility] Comment on above: Performed By: #### Juan GABRIEL CMP, 5643-2 #### [facility] ([id number]) [address] [place] [address] 19182 ABSOLUTE NEUTROPHIL 6.1 X10E9/L Normal 1.5-6.6 [facility] Comment on above: Performed By: #### Juan GABRIEL CMP, 5643-2 #### [facility] ([id number]) [address] [place] [address] 07529 Basophils/100 WBC (Bld) 0.3 % Normal [facility] Comment on above: Performed By: #### Juan GABRIEL CMP, 5643-2 #### [facility] ([id number]) [address] [place] [address] 46103 Eosinophils (Bld) [#/Vol] 0.2 10*3/uL Normal 0.0-0.4 [facility] Comment on above: Performed By: #### Juan GABRIEL CMP, 5643-2 #### [facility] ([id number]) [address] [place] [address] 39522 Eosinophils/100 WBC (Bld) 1.7 % Normal [facility] Comment on above: Performed By: #### Juan GABRIEL CMP, 5643-2 #### [facility] ([id number]) [address] [place] [address] 63700 Erythrocyte distribution width (RBC) [Ratio] 14.5 % Normal 11.5-15.0 [facility] Comment on above: Performed By: #### Juan GABRIEL CMP, 5643-2 #### [facility] ([id number]) [address] [place] [address] 74759 Hematocrit (Bld) [Volume fraction] 41.0 % Normal 35-47 [facility] Comment on above: Performed By: #### Juan GABRIEL CMP, 5643-2 #### [facility] ([id number]) [address] [place] [address] 81075 Hemoglobin (Bld) [Mass/Vol] 14.0 g/dL Normal 11.7-15.5 [facility] Comment on above: Performed By: #### Juan GABRIEL CMP, 5643-2 #### [facility] ([id number]) [address] [place] [address] 05538 Lymphocytes (Bld) [#/Vol] 3.0 10*3/uL Normal 1.0-3.5 [facility] Comment on above: Performed By: #### Juan GABRIEL CMP, 5643-2 #### [facility] ([id number]) [address] [place] [address] 63722 Lymphocytes/100 WBC (Bld) 29.8 % Normal [facility] Comment on above: Performed By: #### Juan GABRIEL CMP, 5643-2 #### [facility] ([id number]) [address] [place] [address] 07899 MCH (RBC) [Entitic mass] 29.2 pg Normal 27-34 [facility] Comment on above: Performed By: #### Juan GABRIEL CMP, 5643-2 #### [facility] ([id number]) [address] [place] [address] 78943 MCHC (RBC) [Mass/Vol] 34.1 g/dL Normal 32-36 [facility] Comment on above: Performed By: #### Juan GABRIEL CMP, 5643-2 #### [facility] ([id number]) [address] [place] [address] 01346 MCV (RBC) [Entitic vol] 85 fL Normal 80-100 [facility] Comment on above: Performed By: #### Juan GABRIEL CMP, 5643-2 #### [facility] ([id number]) [address] [place] [address] Monocytes (Bld) [#/Vol] 0.7 10*3/uL Normal 0-0.9 [facility] Comment on above: Performed By: #### Juan GABRIEL CMP, 5643-2 #### [facility] ([id number]) [address] [place] [address] 43263 Monocytes/100 WBC (Bld) 7.0 % Normal [facility] Comment on above: Performed By: #### Juan GABRIEL CMP, 5643-2 #### [facility] ([id number]) [address] [place] [address] 79353 Neutrophils/100 WBC (Bld) 61.2 % Normal [facility] Comment on above: Performed By: #### Juan GABRIEL CMP, 5643-2 #### [facility] ([id number]) [address] [place] [address] 84092 Platelet mean volume (Bld) [Entitic vol] 8.8 fL Normal 7-12 [facility] Comment on above: Performed By: #### Juan GABRIEL CMP, 5643-2 #### [facility] ([id number]) [address] [place] [address] 74443 Platelets (Bld) [#/Vol] 261 10*3/uL Normal 150-450 [facility] Comment on above: Performed By: #### Juan GABRIEL CMP, 5643-2 #### [facility] ([id number]) [address] [place] [address] 69250 RBC COUNT 4.80 X10E12/L Normal 3.80-5.20 [facility] Comment on above: Performed By: #### Juan GABRIEL CMP, 5643-2 #### [facility] ([id number]) [address] [place] [address] 59572 WBC (Bld) [#/Vol] 10.0 10*3/uL Normal 4.0-11.0 [facility] Comment on above: Performed By: #### Juan GABRIEL CMP, 5643-2 #### [facility] ([id number]) [address] [place] [address] 57090 COMPREHENSIVE METABOLIC PANE [place] 02-17-2024 Albumin [Mass/Vol] 4.2 g/dL Normal 3.2-5.3 [facility] Comment on above: Performed By: #### Juan GABRIEL CMP, 5643-2 #### [facility] ([id number]) [address] [place] [address] 44598 ALP [Catalytic activity/Vol] 60 U/L Normal 39-130 [facility] Comment on above: Performed By: #### Juan GABRIEL CMP, 5643-2 #### [facility] ([id number]) [address] [place] [address] 83253 ALT [Catalytic activity/Vol] 18 U/L Normal 0-31 [facility] Comment on above: Performed By: #### Juan GABRIEL CMP, 5643-2 #### [facility] ([id number]) [address] [place] [address] 55179 Anion gap [Moles/Vol] 6 mmol/L Normal 5-15 [facility] Comment on above: Performed By: #### Juan GABRIEL CMP, 5643-2 #### [facility] ([id number]) [address] [place] [address] 86422 AST [Catalytic activity/Vol] 23 U/L Normal 0-41 [facility] Comment on above: Performed By: #### Juan GABRIEL CMP, 5643-2 #### [facility] ([id number]) [address] [place] [address] 88024 Bilirubin [Mass/Vol] 0.9 mg/dL Normal 0.3-1.2 [facility] Comment on above: Performed By: #### C JIM GABRIEL, 5643-2 #### [facility] ([id number]) [address] [place] [address] 05748 Calcium [Mass/Vol] 8.9 mg/dL Normal 8.5-10.5 [facility] Comment on above: Performed By: #### Juan GABRIEL CMP, 5643-2 #### [facility] ([id number]) [address] [place] [address] 93761 Chloride [Moles/Vol] 108 mmol/L Normal 98-109 [facility] Comment on above: Performed By: #### Juan GABRIEL CMP, 5643-2 #### [facility] ([id number]) [address] [place] [address] 38583 CO2 [Moles/Vol] 23 mmol/L Normal 22-32 [facility] Comment on above: Performed By: #### Juan GABRIEL CMP, 5643-2 #### [facility] ([id number]) [address] [place] [address] 55384 Creatinine [Mass/Vol] 0.75 mg/dL Normal 0.40-1.00 [facility] Comment on above: Result Comment: METH OD TRACEABLE TO IDMS STANDARD Performed By: #### Juan GABRIEL CMP, 5643-2 #### [facility] ([id number]) [address] [place] [address] 75757 eGFR (CKD-EPI) NON-RACE DEPENDENT >90 Normal >59 [facility] Comment on above: Result Comment: Reported eGFR is based on the CKD-EPI 2020 equation that does not use a race coefficient. Performed By: #### Juan GABRIEL CMP, 5643-2 #### [facility] ([id number]) [address] [place] [address] 00745 Glucose [Mass/Vol] 92 mg/dL Normal 65-99 [facility] Comment on above: Performed By: #### Juan GABRIEL CMP, 5643-2 #### [facility] ([id number]) [address] [place] [address] 01928 Potassium [Moles/Vol] 3.8 mmol/L Normal 3.5-5.0 [facility] Comment on above: Performed By: #### C NERY CMP, 5643-2 #### [facility] ([id number]) [address] [place] [address] 75376 Protein [Mass/Vol] 7.8 g/dL Normal 6.0-8.0 [facility] Comment on above: Performed By: #### C NERY CMP, 5643-2 #### [facility] ([id number]) [address] [place] [address] 29477 Sodium [Moles/Vol] 137 mmol/L Normal 134-146 [facility] Comment on above: Performed By: #### Juan GABRIEL CMP, 5643-2 #### [facility] ([id number]) [address] [place] [address] 44114 Urea nitrogen [Mass/Vol] 17 mg/dL Normal 5-23 [facility] Comment on above: Performed By: #### C NERY, [facility], 5643-2 #### [facility] ([id number]) [address] [place] [address] 63307 DRUG SCREEN, URINEon 024 AMPHETAMINE/METHAMP Negative Normal NEG [facility] Comment on above: Result Comment: AMPH /METH screening cut off = 1000 ng/mL Performed By: #### D HIDALGO #### [facility] ([id number]) [address] [place] [address] 69334 BARBITURATES Negative Normal NEG [facility] Comment on above: Result Comment: Shayla iturates screening cut off value = 200 ng/mL Performed By: #### D HIDALGO #### [facility] ([id number]) [address] [place] [address] 88677 BENZODIAZEPINES Negative Normal NEG [facility] Comment on above: Result Comment: Raymond odiazepines screening cut off value = 200 ng/mL Performed By: #### D HIDALGO #### [facility] ([id number]) [address] [place] [address] 08259 CANNABINOIDS Positive Abnormal NEG [facility] Comment on above: Result Comment: Conf irmation available upon request. Cannabinoids/THC screening cut off value = 50 ng/mL Performed By: #### D HIDALGO #### [facility] ([id number]) [address] [place] [address] 73437 COCAINE METABOLITE Positive Abnormal NEG [facility] Comment on above: Result Comment: Conf irmation available upon request. Cocaine screening cut off value = 300 ng/mL Performed By: #### D HIDALGO #### [facility] ([id number]) [address] [place] [address] 37236 ECSTASY Negative Normal NEG [facility] Comment on above: Result Comment: Ecst asy screening cut off value = 500 ng/mL This report is intended for use in clinical monitoring or management of patients. Performed By: #### D HIDALGO #### [facility] ([id number]) [address] [place] [address] 37550 METHADONE Negative Normal NEG [facility] Comment on above: Result Comment: Meth adone screening cut off value = 300 ng/mL. Performed By: #### D HIDALGO #### [facility] ([id number]) [address] [place] [address] 65319 OPIATES Negative Normal NEG [facility] Comment on above: Result Comment: Opia jesica screening cut off value = 300 ng/mL NOTE: This test is used for the detection of codeine, hydrocodone (>1000 ng/mL), morphine and hydromorphone (>900 ng/mL) in urine. Performed By: #### D HIDALGO #### [facility] ([id number]) [address] [place] [address] 40897 OXYCODONE Negative Normal NEG [facility] Comment on above: Result Comment: Oxyc odone screening cut off value = 300 ng/mL NOTE: This test is used for the detection of oxycodone and oxymorphone in urine. Performed By: #### D HIDALGO #### [facility] ([id number]) [address] [place] [address] 42521 PHENCYCLIDINE Negative Normal NEG [facility] Comment on above: Result Comment: Phen cyclidine screening cut off value = 25 ng/mL Performed By: #### D HIDALGO #### [facility] ([id number]) [address] [place] [address] 48756 ETHANOLon 02-17-2024 Ethanol [Mass/Vol] mg/dL Normal 0.00-0.08 [facility] Comment on above: Result Comment: This report is intended for use in clinical monitoring or management of patients. Performed By: #### C BCA, CMP, 5643-2 #### [facility] ([id number]) [address] [place] [address] 44299 HCG ( test) Ql (U)o n 02-17-2024 Beta HCG ( test) Ql (U) Negative Normal [facility] Comment on above: Performed By: #### 2 106-3 #### [facility] ([id number]) [address] [place] [address] BRAIN WO CONTon CT BRAIN WO CONT CT BRAIN WO CONT CT BRAIN WO CONT 02/04/2024 7:15 PM INDICATION: Head trauma, minor, normal mental status (Age 18-64y); fell down 17 steps, pain COMPARISON: None TECHNIQUE: Noncontrast CT images of the head were obtained. All CT scans at this facility use dose modulation, iterative reconstruction, and/or weight based dosing when appropriate to reduce radiation dose to as low as reasonably achievable. FINDINGS: BRAIN: No intraparenchymal or extra-axial hemorrhage. Patent basal cisterns. No mass effect or midline shift. Levin-white differentiation is preserved. VENTRICLES: No hydrocephalus. VASCULATURE: No hyperdense major artery or major dural venous sinus. PARANASAL SINUSES: Suggestion of restriction cyst within right maxillary sinus. TEMPORAL BONE: Well-aerated middle ears and visualized mastoid air cells. ORBITS: Unremarkable. SOFT TISSUES: The visualized head and neck soft tissues are unremarkable. OSSEOUS STRUCTURES: No displaced fracture. Unremarkable skull base. IMPRESSION: No definite acute intracranial abnormality. Finalized by Marek Urena DO on 02/04/2024 7:36 PM Normal [facility] CT CERVICAL SPINE WO CONTon 02-04-2024 CT CERVICAL SPINE WO CONT CT CERVICAL SPINE WO CONT STUDY: Cervical spine CT without contrast CLINICAL HISTORY: Acute cervical neck pain, fall and trauma COMPARISON:None TECHNIQUE: CT cervical spine was performed utilizing thin section CT imaging without contrast. Coronal and sagittal reformatted images were obtained and reviewed. Automated exposure control was utilized. FINDINGS: The cervical spine is visualized from the skull base through T1. No prevertebral soft tissue swelling. No vertebral body height loss. Facets are well aligned. Loss of normal cervical lordosis could relate to positioning or spasm. Lung apices appear to be unremarkable. Thyroid is mildly heterogeneously enlarged. Please note, ligamentous injury is not well evaluated on a neutral position CT. If concern for ligamentous injury consider flex-ex radiographs or MRI. IMPRESSION: 1. No evidence of acute ossific abnormality identified. All CT scans at this facility use dose modulation, iterative reconstruction, and/or weight based dosing when appropriate to reduce radiation dose to as low as reasonably achievable. Finalized by Gonzalo Conway MD on 02/04/2024 7:48 PM Normal [facility] PREG HCG QUALon 04-03-2022 , QUAL Negative Normal NEGATIVE [facility] Comment on above: Performed By: #### P REG #### [facility] [address] [place] [address] Dr. Marck Collado XR ANKLE WES 2Von 04-03-2022 XR ANKLE WES 2V EXAMINATION: XR righ t ankle HISTORY: Pain COMPARISON: 03/07/2022 FINDINGS: 24 seconds of fluoroscopy. 3 images. 3 images of the ankle. No acute fracture or dislocation. Lateral stress views demonstrate no change in tibiotalar joint spacing with stress IMPRESSION: Intraprocedural fluoroscopic images Electronically authenticated by: CHARI REN Date: 2022-04-03 11:35 Normal [facility] MRI ANKLE RT WO CONon 2020 MRI ANKLE RT WO CON EXAM: MRI ANKLE RT W O CON COMPARISON: Right foot and ankle x-rays from 03/22/2021. Prior right ankle MRI from 05/12/2019. HISTORY: Chronic right lateral ankle pain and instability. Prior ankle surgery. TECHNIQUE: Multiplanar and multisequence imaging of the right ankle was performed without contrast. FINDINGS: Motion artifact mildly degrades evaluation on this study. There are surgical tracks in the fibula and correlation with surgical history may be be helpful. No acute fracture is identified. There is no OCD lesion involving the talar dome. There is relative preservation of the joint spaces in the ankle and midfoot and hindfoot. The Achilles tendon is intact with a normal insertion onto the calcaneus. There is a small spur at the Achilles insertion onto the calcaneus. Flexor and extensor tendons of the ankle are grossly intact including the posterior tibialis tendon. A small longitudinal tear suggested on the prior axial images within the peroneus longus tendon in the inframalleolar portion is not as well seen on the current study. There is intermediate signal and mild tendinopathy of the peroneal tendons with a small amount of fluid tracking along the peroneal tendons suggesting mild tenosynovitis. Thickening and intermediate signal of the anterior talofibular ligament is consistent with post surgical change and/or a moderate to high-grade prior sprain. The calcaneofibular ligament, posterior talofibular ligament and superficial and deep components of the deltoid ligament are intact. There is thickening and intermediate signal of the anterior inferior tibiofibular ligament consistent with a moderate prior sprain. There is mild spurring involving the distal tibiofibular joint. There is no cystic or solid mass in the region of the tarsal tunnel. There is no acute abnormality involving the plantar fascia. There is a small plantar calcaneal spur. IMPRESSION: 1. Surgical tracks are present in the distal fibula and correlation with surgical history would be helpful. 2. Thickening and intermediate signal of the anterior talofibular ligament likely relates to postsurgical change or a prior moderate to high-grade sprain. 3. There is mild tendinopathy and mild tenosynovitis involving the peroneal tendons. 4. No acute fracture or talar OCD lesion. Electronically authenticated by: ENE REYEZ Date: 2021-07-28 16:12 Normal [facility] .UA Microscp Aon 06-06-2017 UA Mucus Present Abnormal Absent [facility] Comment on above: Performed By: #### C [id number] ####[address] [address] UA Squepi Cells Quant 9 /HPF Normal 0-29 [facility] Comment on above: Performed By: #### C [id number] ####[address] [address] UA WBC Quant 3 /HPF Normal 0-5 [facility] Comment on above: Performed By: #### C [id number] ####[address] [address] Urine, erythrocytes 1 /HPF Normal 0-5 [facility] Comment on above: Performed By: #### C [id number] ####[address] [address] .eGFRon 06-06-2017 eGFR (non-black) mL/min/{1.73_m2} Normal >=60 [facility] Comment on above: Result Comment: Resu lt = 0-14.9 mL/min/1.73 m2 Kidney failure or DialysisResult = 15-29 mL/min/1.73 m2 Severe decrease in GFRResult = 30-59 mL/min/1.73 m2 Moderate decrease in GFRResult >= 60 mL/min/1.73 m2 Normal or increased GFR Performed By: #### E GFR ####[place] [id number] Result Comment: Resu lt = 0-14.9 mL/min/1.73 m2 Kidney failure or DialysisResult = 15-29 mL/min/1.73 m2 Severe decrease in GFRResult = 30-59 mL/min/1.73 m2 Moderate decrease in GFRResult >= 60 mL/min/1.73 m2 Normal or increased GFRChronic kidney disease is defined as either kidney damage or GFR < 60 mL/min/1.73 m2 for >= 3 months. Kidney damage is defined as pathologic abnormalities or markers of damage including abnormalities in blood or urine tests or imaging studies. This GFR is NOT used for medication dosing. CBC w/ Diffon 06-06-2017 Erythrocyte distribution width Auto Ratio (RBC) 15.9 % High 11.6-14.8 [facility] Comment on above: Performed By: #### C BC ####[place] [id number] Erythrocytes (RBC) 4.92 x10*6/mcL Normal 3.80-5.20 [facility] Comment on above: Performed By: #### C BC ####[place] [id number] Hematocrit (HCT) 39.5 % Normal 36.0-46.0 [facility] Comment on above: Performed By: #### C BC ####[place] [id number] Hemoglobin mass conc (Bld) 13.2 g/dL Normal 12.0-16.0 [facility] Comment on above: Performed By: #### C BC ####[place] [id number] MCH 26.8 pg Low 27.0-35.0 [facility] Comment on above: Performed By: #### C BC ####[place] [id number] MCHC mass conc (RBC) 33.3 % Normal 31.0-37.0 [facility] Comment on above: Performed By: #### C BC ####[place] [id number] MCV 80.3 fL Normal 80.0-100.0 [facility] Comment on above: Performed By: #### C BC ####[place] [id number] Platelet mean volume (PMV) 10.9 fL High 6.7-10.6 [facility] Comment on above: Performed By: #### C BC ####[address] [address] Platelets 229 x10*3/mcL Normal 150-350 [facility] Comment on above: Performed By: #### C BC ####[address] [address] WBC (Leukocytes) 14.3 x10*3/mcL High 4.5-11.0 [facility] Comment on above: Performed By: #### C BC ####[address] [address] CMPon 06-06-2017 Alanine aminotransferase (ALT) 13 U/L Low 14-54 [facility] Comment on above: Performed By: #### C OMP ####[address] [address] Albumin 3.9 g/dL Normal 3.2-4.9 [facility] Comment on above: Performed By: #### C OMP ####[address] [address] Albumin/Globulin Ratio 1.0 {ratio} Low 1.1-2.2 [facility] Comment on above: Performed By: #### C OMP ####[address] [address] Alk Phos 72 IU/L Normal 32-91 [facility] Comment on above: Performed By: #### C OMP ####[address] [address] Anion gap 9 mmol/L Normal 7-17 [facility] Comment on above: Performed By: #### C OMP ####[address] [address] Aspartate aminotransferase (AST) 18 U/L Normal 15-41 [facility] Comment on above: Performed By: #### C OMP ####[address] [address] Bili Total 0.4 mg/dL Normal 0.3-1.2 [facility] Comment on above: Performed By: #### C OMP ####[address] [address] BUN/Creatinine Ratio 13.0 mg/mg Low 15.0-25.0 [facility] Comment on above: Performed By: #### C OMP ####[address] [address] Calcium 8.9 mg/dL Normal 8.5-10.3 [facility] Comment on above: Performed By: #### C OMP ####[address] [address] Chloride 108 mmol/L Normal 98-110 [facility] Comment on above: Performed By: #### C OMP ####[address] [address] CO2 22 mmol/L Normal 22-32 [facility] Comment on above: Performed By: #### C OMP ####[address] [address] Creatinine 0.69 mg/dL Normal 0.44-1.03 [facility] Comment on above: Performed By: #### C OMP ####[address] [address] Glucose mass conc 94 mg/dL Normal 74-118 [facility] Comment on above: Performed By: #### C OMP ####[address] [address] Potassium molar conc 3.6 mmol/L Normal 3.4-4.8 [facility] Comment on above: Performed By: #### C OMP ####[address] [address] Protein 7.8 g/dL Normal 6.5-8.1 [facility] Comment on above: Performed By: #### C OMP ####[address] [address] Sodium 135 mmol/L Normal 133-142 [facility] Comment on above: Performed By: #### C OMP ####[facility] [place] [address] Urea nitrogen 9 mg/dL Normal 8-26 [facility] Comment on above: Performed By: #### C OMP ####[place] [address] [place] [address] CT Abd Pelvis w/o IV Cont St one Prot.on 06-06-2017 CT Abd Pelvis w/o IV Cont Stone Prot. CT abdomen and pelvis without contrast 06/06/2017Clinical data is acute onset left lateral flank pain starting yesterday. Previous cholecystectomy and 2 C-sections. No prior known kidney stones.No comparison studies.TECHNIQUE: Axial images from above the kidneys to the pubic symphysis without any IV or oral contrast. Sagittal and coronal 2-D reconstructions.CT lung bases: The posterior lung bases are clear. No infiltrate or effusion. No hiatal hernia.CT abdomen findings:Negative for stone in the kidneys, ureters, or urinary bladder. Kidneys have normal size with no perinephric stranding. No obvious renal mass or cyst.Right upper abdomen cholecystectomy clips. The common bile duct measures 5 mm. Negative noncontrast liver, spleen, pancreas, adrenal glands, aorta, IVC. The top of the abdomen is not completely included. No evidence of hiatal hernia. Stomach and small bowel loops contain minimal fluid, no evidence for obstruction or significant inflammatory change of stomach or small bowel. Minimal fat at the umbilicus with no herniated bowel.CT pelvis findings:Positive for acute diverticulitis. There is focal wall thickening involving the mid to distal descending colon, with a single thick walled inflamed diverticulum off the posterior margin of the descending colon at a level near the iliac crest. There is hazy infiltration of the surrounding left flank fat, with a trace amount of fluid and mild thickening along the anterior left pararenal and lateral conal fascia below the kidney level. Extends to about mid pelvis level. No free air or abscess pocket. A couple additional noninflamed diverticula are also seen in that area.A normal appendix in the right lower quadrant, just below the top of the right iliac crest. Moderate residual stool and mild amount of gas in the proximal colon. Mild residual stool in the sigmoid colon and rectum. The diverticulitis is not appear to be causing a significant obstruction.The urinary bladder was moderately full, no wall thickening or stones. Uterus and both ovaries are present and have normal size and appearance. The uterus is anteverted and slightly levoverted and position. Scarring of the low anterior abdominal wall from C-sections. Numerous calcified fat necrosis areas across the right and left lower abdominal wall subcutaneous fat at the line. Several small right and left inguinal lymph nodes. No herniated bowel.CT bones:Mild anterior spurring T10/11. A very minimal anterior wedging of T11. No lumbar compression fracture. At L5/S1, there is minimal left and mild to moderate right facet degeneration without an obvious disc bulge. Prominent sclerosis of the posterior left iliac bone and around the left sacroiliac joint. Moderate sclerosis of the right iliac bone along the mid to inferior right SI joint and minimal sclerosis inferior right sacrum. Bilateral sacroiliac joint shows slight widening and slight vacuum degeneration. Small likely benign sclerotic density in the right femoral head.IMPRESSIONS:1. Positive for acute diverticulitis of the descending colon, no drainable abscess or free air.2. Negative for stones or obstruction.3. Old cholecystectomy and .4. Osteitis condensans ilii, severe left and moderate right.5. Report called to Dr. Luu in the ER at approximately 1550 hours 06/06/2017. Final Dictated by: Alyssia Grimaldo MDctated DT/TM: 06.06.2017 3:50 pmSigned by: Alyssia Grimaldo MD JSigned (Electronic Signature): 06.06.2017 4:05 pm(If Report Is Signed, Electronically Signed in Other Vendor System) Normal [facility] Diff Autoon 06-06-2017 Baso Absolute 0.1 x10*3/mcL Normal 0.0-0.2 [facility] Comment on above: Performed By: #### . Automated Diff ####[address] [address] Basophils/100 WBC Auto (Bld) 0.6 % Normal 0.0-1.5 [facility] Comment on above: Performed By: #### . Automated Diff ####[address] [address] Eos Absolute 0.1 x10*3/mcL Normal 0.0-0.4 [facility] Comment on above: Performed By: #### . Automated Diff ####[address] [address] Eosinophils/100 leukocytes 0.6 % Normal 0.0-5.4 [facility] Comment on above: Performed By: #### . Automated Diff ####[address] [address] Lymphocytes 3.9 x10*3/mcL Normal 1.0-4.8 [facility] Comment on above: Performed By: #### . Automated Diff ####[address] [address] Lymphocytes/100 leukocytes 27.5 % Normal 27.2-40.8 [facility] Comment on above: Performed By: #### . Automated Diff ####[address] [address] Kemper Absolute 0.8 x10*3/mcL Normal 0.1-1.1 [facility] Comment on above: Performed By: #### . Automated Diff ####[address] [address] Monocytes/100 leukocytes 5.4 % Normal 3.7-11.9 [facility] Comment on above: Performed By: #### . Automated Diff ####[address] [address] Neutro Absolute 9.4 x10*3/mcL High 1.8-7.7 [facility] Comment on above: Performed By: #### . Automated Diff ####[address] [address] Neutro Auto 65.9 % Normal 47.2-70.8 [facility] Comment on above: Performed By: #### . Automated Diff ####[address] [address] ED Clinical Summaryon 2016 ED Clinical Summary (Inserted Image. Diana ble to display) [address] [address] ed Clinical SummaryPerson InformationName: Yulissa Meek/[facility]James Age: 31 Years : 1985Sex: Female PCP:Marital Status:Single Phone:Race:White Ethnicity:Not or Language:EnglishMRN: [id number] Reason:Abdominal pain; Abdominal pain Acuity: 3Enc Type: Emergency Med Service: Emergency MedicineArrival:06/06/2017 12:37:00 Discharge: 06/06/2017 16:55:00 LOS: 000 04:18Checkin:06/06/2017 12:37:00 Checkout: 06/06/2017 16:55:00 Dispo Type: Home or Self CareAddress:[address] [place] [address] Provider Notes: History of Present IllnessYulissa Meek?is a?31 year old?female patient?presenting to the emergency department by?private vehicle complaining of?left abdominal?pain. Patient states the symptoms started today while sitting in her car. Patient describes her pain as intermittent and like someone punching her in the side.?Patient symptoms are aggravated by driving over bumps on the road, and alleviated by nothing. She reports taking Tylenol and Aleve but with no relief. Patient complains of left abdominal pain, nausea, diaphoresis. Patient denies chance of , vaginal discharge, increased frequency of urination, hematuria, diarrhea, hematochezia, constipation, vomiting. Her last menstrual period was 2 weeks ago.?Patient does have a history of similar symptoms from before her miscarriage. Patient's past medical history includes miscarriage.? No other complaints or concerns. Review of SystemsGENERAL: [Negative for weakness, malaise]EYES: [Negative for injury, pain, redness, discharge]ENT: [Negative for injury, pain , sore throat and discharge]NECK: [Negative for injury, pain, swelling, and stiffness]CARDIOVASCULAR: [Negative for chest pain, palpitations]RESPIRATORY: [Negative for shortness of breath, cough, wheezing, and pleuritic chest pain]ABDOMEN/GI: [Negative for pain, nausea, vomiting]BACK: [Negative for injury or bruising]: [Negative for injury, bleeding, discharge, frequency, hematuria, urgency]MUSCULOSKELETAL: [Positive for mild flank pain; Negative for arthralgias, injury and deformity]SKIN: [Negative for injury, rash, discoloration]NEURO: [Negative for focal weakness, numbness, tingling, and seizure]ALLERGY/IMMUNOLOGY : [Negative for hives, rash, and new allergies]ENDOCRINE: [Negative for neck swelling, polydipsia, polyuria, marked weight changes, heat/cold intolerance]HEMATOLOGIC/LY MPHATIC: [Negative for swollen lymph nodes, abnormal bleeding, and unusual bruising]As reviewed in the HPI. All other systems reviewed are negative or normal.? Physical ExamCONSTITUTIONAL: [Obese, Awake, alert, non toxic, well developed, well nourished, no acute distress, sitting in bed]HEAD: [Normocephalic, atraumatic.]EYES: [Pupils equal round & reactive to light, extraocular movements intact, no nystagmus, clear conjunctiva, non-icteric sclera.]ENT: External ear canal clear without evidence of cerumen impaction or foreign body, TM's clear without erythema or bulging. Nares patent without drainage, septum appears midline. Moist mucus membranes, oropharynx clear without exudate, erythema, or mass. Uvula midline.]NECK: [Nontender and supple. No meningismus, no appreciated lymphadenopathy. Intact full range of motion. C-spine midline without vertebral tenderness. Trachea midline.]CHEST WALL: [Inspection normal, no lesions, equal rise. No crepitus or tenderness upon palpation.]CARDIOVASCULAR: [Regular rate, rhythm, normal S1 and S2. No appreciated murmurs, rubs, or gallops. No pulse deficits appreciated. Intact distal perfusion. JVD not appreciated.]PULMONARY: [Respiratory distress absent. Respiratory effort normal. Breath sounds clear to auscultation without rhonchi, rales, or wheezing. No accessory muscle use. No stridor]ABDOMEN: [Inspection normal, without surgical scars. Soft, non-tender, non-distended, with normoactive bowel sounds. No palpable masses, rebound, or guarding]BACK: [Intact ROM. No midline vertebral tenderness, step off, or crepitus. No CVA tenderness.]MUSCULOSKELETA L: [Mild left flank pain. Extremities nontender to palpation. No gross deformity or evidence of external trauma. Intact range of motion. Sensation intact. No clubbing, cyanosis, or edema.]SKIN: [Warm, dry. No jaundice, rash, urticaria, or petechiae.]NEUROLOGIC: [Alert and oriented x 3, GCS 15, normal mentation for age. Moves all four extremities. No gross sensory deficit. Cerebellar function grossly normal.]PSYCHIATRIC: [Normal mood and affect, thought process is clear and linear]Diagnosis:1:Diverti culitisProblems No Problems DocumentedSmoking Status: Smoking Status Current every day smokerFunctional Status:Sensory Deficits:History of Falls:Mobility Assistance Prior to Admission:ADLs:Current Level of Assistance for Self-Care/Mobility:Cogniti ve Status:Allergies No Known AllergiesLaboratory or Other Results This Visit (last charted value for your 06/06/2017 visit) Hematology 06/06/2017 3:14 PM WBC: 14.3 x10 RBC: 4.92 x10 Neutro Auto: 65.9 % -- Normal range between ( 47.2 and 70.8 ) Lymph Auto: 27.5 % -- Normal range between ( 27.2 and 40.8 ) Kemper Auto: 5.4 % -- Normal range between ( 3.7 and 11.9 ) Eos Auto: 0.6 % -- Normal range between ( 0.0 and 5.4 ) Basophil Auto: 0.6 % -- Normal range between ( 0.0 and 1.5 ) Baso Absolute: 0.1 x10 MCV: 80.3 fL -- Normal range between ( 80.0 and 100.0 ) MCHC: 33.3 % -- Normal range between ( 31.0 and 37.0 ) Lymph Absolute: 3.9 x10 Hct: 39.5 % -- Normal range between ( 36.0 and 46.0 ) Kemper Absolute: 0.8 x10 MCH: 26.8 pg -- Normal range between ( 27.0 and 35.0 ) Neutro Absolute: 9.4 x10 Hgb: 13.2 g/dL -- Normal range between ( 12.0 and 16.0 ) Mean Platelet Volume: 10.9 fL -- Normal range between ( 6.7 and 10.6 ) Platelet: 229 x10 Eos Absolute: 0.1 x10 RDW: 15.9 % -- Normal range between ( 11.6 and 14.8 ) Urinalysis 06/06/2017 3:14 PM UA Color: Yellow UA Urobilinogen: 0.2 mg/dL UA Bili: Negative UA Ketones: Negative mg/dL UA Leukocyte Esterase: Negative UA Nitrite: Negative UA Glucose: Negative mg/dL UA Protein: Negative mg/dL UA Blood: Negative UA Spec Grav: 1.024 -- Normal range between ( 1.003 and 1.035 ) UA pH: 5.0 UA Clarity: Hazy UA Source: Clean Catch UA Mucus: Present /LPF UA WBC Quant: 3 /HPF -- Normal range between ( 0 and 5 ) UA RBC Quant: 1 /HPF -- Normal range between ( 0 and 5 ) UA Squepi Cells Quant: 9 /HPF -- Normal range between ( 0 and 29 ) Chemistry 06/06/2017 3:14 PM Creatinine Lvl: 0.69 mg/dL -- Normal range between ( 0.44 and 1.03 ) BUN: 9 mg/dL -- Normal range between ( 8 and 26 ) Glucose Lvl: 94 mg/dL -- Normal range between ( 74 and 118 ) Potassium Lvl: 3.6 mmol/L -- Normal range between ( 3.4 and 4.8 ) AST: 18 IU/L -- Normal range between ( 15 and 41 ) ALT: 13 IU/L -- Normal range between ( 14 and 54 ) Sodium Lvl: 135 mmol/L -- Normal range between ( 133 and 142 ) Lipase Lvl: 19 IU/L -- Normal range between ( 22 and 51 ) Calcium Lvl: 8.9 mg/dL -- Normal range between ( 8.5 and 10.3 ) Albumin Lvl: 3.9 g/dL -- Normal range between ( 3.2 and 4.9 ) Total Protein: 7.8 g/dL -- Normal range between ( 6.5 and 8.1 ) Bili Total: 0.4 mg/dL -- Normal range between ( 0.3 and 1.2 ) Alk Phos: 72 IU/L -- Normal range between ( 32 and 91 ) Chloride: 108 mmol/L -- Normal range between ( 98 and 110 ) CO2: 22 mmol/L -- Normal range between ( 22 and 32 ) Anion Gap: 9 -- Normal range between ( 7 and 17 ) eGFR Non-AA: >60 mL/min/1.73m? eGFR AA: >60 mL/min/1.73m? BUN Crea Ratio: 13.0 -- Normal range between ( 15.0 and 25.0 ) Urine Preg: Negative AG Ratio: 1.0 -- Normal range between ( 1.1 and 2.2 ) Computed Tomography 06/06/2017 3:[address] Abd Pelvis w/o IV Cont Stone Prot.: CT Abd Pelvis w/o IV Cont Stone Prot.Measurements:Height:W eight: 125 kgBlood Pressure: /98 mmHgBMI:Procedures No Procedures DocumentedImmunizations No Immunizations Documented This VisitFinal Med List:New [facility] [address], [id number] [address] [place], [place] [id number], [phone] (Cipro 500 mg oral tablet) 1 Tabs Oral (given by mouth) every 12 hours for 7 Days. Refills: 0.Last Dose: m etroNIDAZOLE (Flagyl 500 mg oral tablet) 1 Tabs Oral (given by mouth) every 8 hours for 7 Days. Refills: 0.Last Dose: o ndansetron (Zofran ODT 4 mg oral tablet, disintegrating) 1 Tabs Oral (given by mouth) 3 times a day as needed as needed for nausea/vomiting for 3 Days. Refills: 0.Last Dose: P rinted PrescriptionsHYDROcodone-a cetaminophen (Slater 5 mg-325 mg oral tablet) 1 Tabs Oral (given by mouth) every 6 hours as needed as needed for pain for 2 Days. Refills: 0.Last Dose: M edications that have not changedOther Medicationsnaproxen (Aleve 220 mg oral tablet) 1 Capsules Oral (given by mouth) every 8 hours as needed as needed for pain.Last Dose: [facility] [address], [address] [address] [place], [place] [id number], [phone] (Cipro 500 mg oral tablet) 1 Tabs Oral (given by mouth) every 12 hours for 7 Days. Refills: 0.metroNIDAZOLE (Flagyl 500 mg oral tablet) 1 Tabs Oral (given by mouth) every 8 hours for 7 Days. Refills: 0.ondansetron (Zofran ODT 4 mg oral tablet, disintegrating) 1 Tabs Oral (given by mouth) 3 times a day as needed as needed for nausea/vomiting for 3 Days. Refills: 0.Printed PrescriptionsHYDROcodone-a cetaminophen (Slater 5 mg-325 mg oral tablet) 1 Tabs Oral (given by mouth) every 6 hours as needed as needed for pain for 2 Days. Refills: 0.Other Medicationsnaproxen (Aleve 220 mg oral tablet) 1 Capsules Oral (given by mouth) every 8 hours as needed as needed for pain.Care Team Members:Attending Physician: Young Luu MDulting Physician:Referring Physician:Provider Role Assigned UnassignedBell KHOURY, Young Alvarez ED Provider 06/06/2017 13:43:54Follow up:With: Address: When:Take the prescription medications as directed.With: Address: When:Rest and drink plenty of fluids.With: Address: When:If you develop a fever over 101?, persistent vomiting, or for any other concerns, please go to the nearest emergency department immediately.With: Address: When:Follow the diet instructions provided.With: Address: When:Be sure to call your doctor for a follow up appointment in 1-2 days. Take the prescription medications as directed. Rest and drink plenty of fluids.Discharge Orders:Discharge Patient 06/06/17 16:03:00 EDT, Discharge to Home, SelfPatient Education Information:[employer] Poison Help line: .[facility] Hotline: [place] Tobacco Quit Line: [place], [place]) [address]: [phone] [address]: [phone] [address], [place]: [phone] Normal [facility] ED Note-Physicianon 06-06-20 ED Note-Physician Chief Complaint Pt c /o lower abdominal pain that began yesterday.History of Present Illness Yulissa Meek is a 31 year old female patient presenting to the emergency department by private vehicle complaining of left abdominal pain. Patient states the symptoms started today while sitting in her car. Patient describes her pain as intermittent and like someone punching her in the side. Patient symptoms are aggravated by driving over bumps on the road, and alleviated by nothing. She reports taking Tylenol and Aleve but with no relief. Patient complains of left abdominal pain, nausea, diaphoresis. Patient denies chance of , vaginal discharge, increased frequency of urination, hematuria, diarrhea, hematochezia, constipation, vomiting. Her last menstrual period was 2 weeks ago. Patient does have a history of similar symptoms from before her miscarriage. Patient's past medical history includes miscarriage. No other complaints or concerns.Review of Systems GENERAL: [Negative for weakness, malaise] EYES: [Negative for injury, pain, redness, discharge] ENT: [Negative for injury, pain , sore throat and discharge] NECK: [Negative for injury, pain, swelling, and stiffness] CARDIOVASCULAR: [Negative for chest pain, palpitations] RESPIRATORY: [Negative for shortness of breath, cough, wheezing, and pleuritic chest pain] ABDOMEN/GI: [Negative for pain, nausea, vomiting] BACK: [Negative for injury or bruising] : [Negative for injury, bleeding, discharge, frequency, hematuria, urgency] MUSCULOSKELETAL: [Positive for mild flank pain; Negative for arthralgias, injury and deformity] SKIN: [Negative for injury, rash, discoloration] NEURO: [Negative for focal weakness, numbness, tingling, and seizure] ALLERGY/IMMUNOLOGY: [Negative for hives, rash, and new allergies] ENDOCRINE: [Negative for neck swelling, polydipsia, polyuria, marked weight changes, heat/cold intolerance] HEMATOLOGIC/LYMPHATIC: [Negative for swollen lymph nodes, abnormal bleeding, and unusual bruising] As reviewed in the HPI. All other systems reviewed are negative or normal.Physical Exam CONSTITUTIONAL: [Obese, Awake, alert, non toxic, well developed, well nourished, no acute distress, sitting in bed] HEAD: [Normocephalic, atraumatic.] EYES: [Pupils equal round & reactive to light, extraocular movements intact, no nystagmus, clear conjunctiva, non-icteric sclera.] ENT: External ear canal clear without evidence of cerumen impaction or foreign body, TM's clear without erythema or bulging. Nares patent without drainage, septum appears midline. Moist mucus membranes, oropharynx clear without exudate, erythema, or mass. Uvula midline.] NECK: [Nontender and supple. No meningismus, no appreciated lymphadenopathy. Intact full range of motion. C-spine midline without vertebral tenderness. Trachea midline.] CHEST WALL: [Inspection normal, no lesions, equal rise. No crepitus or tenderness upon palpation.] CARDIOVASCULAR: [Regular rate, rhythm, normal S1 and S2. No appreciated murmurs, rubs, or gallops. No pulse deficits appreciated. Intact distal perfusion. JVD not appreciated.] PULMONARY: [Respiratory distress absent. Respiratory effort normal. Breath sounds clear to auscultation without rhonchi, rales, or wheezing. No accessory muscle use. No stridor] ABDOMEN: [Inspection normal, without surgical scars. Soft, non-tender, non-distended, with normoactive bowel sounds. No palpable masses, rebound, or guarding] BACK: [Intact ROM. No midline vertebral tenderness, step off, or crepitus. No CVA tenderness.] MUSCULOSKELETAL: [Mild left flank pain. Extremities nontender to palpation. No gross deformity or evidence of external trauma. Intact range of motion. Sensation intact. No clubbing, cyanosis, or edema.] SKIN: [Warm, dry. No jaundice, rash, urticaria, or petechiae.] NEUROLOGIC: [Alert and oriented x 3, GCS 15, normal mentation for age. Moves all four extremities. No gross sensory deficit. Cerebellar function grossly normal.] PSYCHIATRIC: [Normal mood and affect, thought process is clear and linear]Vitals & Measurements T: 36.8 ?C (Oral) RR: 18 BP: 139/89 SpO2: 98% HT: 160 cm DOSE WT: 125 kg Additional Vitals No qualifying data available.Procedure No qualifying data available.Medical Decision Making This document serves as a record of the services and decisions performed and made by the attending physician of record. it was created on his/her behalf by a trained medical laboratory technician. The creation of this document is based on the provider's statements to the medical laboratory technician. Signed by: Blaine Rivers, [id number], 06/06/17. Scribe Attestation: The information in this document, created by the medical laboratory technician for me, accurately reflects the services I personally performed and the decisions made by me. The results of pertinent diagnostic studies and exam findings were discussed. The patient?s provisional diagnosis and plan of care were discussed with the patient and present family. The patient and/or present family expressed understanding of the diagnosis and plan. The nurse was instructed to provide written instructions and appropriate follow-up information. The patient understands their need and responsibility to obtain additional follow-up as instructed. The patient is comfortable with the plan and discharge. The risks of medications administered and prescribed were discussed with the patient and family present.Assessment/Plan 1. Diverticulitis Orders: ciprofloxacin, 1 tabs, Oral, q12hr, X 7 days, # 14 tabs, 0 Refill(s), 06/13/17 16:00:00 EDT, Pharmacy: [id number] HYDROcodone-acetaminophen, 1 tabs, Oral, q6hr, PRN, X 2 days, # 8 tabs, 0 Refill(s), 06/08/17 16:00:00 EDT metroNIDAZOLE, 1 tabs, Oral, q8hr, X 7 days, # 21 tabs, 0 Refill(s), 06/13/17 16:00:00 EDT, Pharmacy: [facility] [id number] ondansetron, 1 tabs, Oral, TID, PRN, # 9 tabs, 0 Refill(s), Pharmacy: [facility] [id number] sodium chloride, 10 mL, IV Push, Injection, As Indicated, PRN flush, First Dose: 06/06/17 14:15:00 EDT, Dispense From Location: [id number] Discharge PatientProblem List/Past Medical History Ongoing No qualifying data Historical No qualifying dataMedications Home No active home medications Inpatient Normal Saline Flush 0.9% injectable solution, 10 mL, IV Push, As Indicated, PRN NS Bolus, 1000 mL, IV Bolus, Once Toradol, 30 mg, 1 mL, IV Push, Once Zofran, 4 mg, 2 mL, IV Push, Once Prescriptions No active PrescriptionsAllergies No Known AllergiesSocial History Tobacco Current every day smoker, Cigarettes, PacksLab Results Automated Hematology LATEST RESULTS WBC 06/06/17 15:14 14.3 High RBC 06/06/17 15:14 4.92 Hgb 06/06/17 15:14 13.2 Hct 06/06/17 15:14 39.5 MCV 06/06/17 15:14 80.3 MCH 06/06/17 15:14 26.8 Low MCHC 06/06/17 15:14 33.3 RDW 06/06/17 15:14 15.9 High Platelet 06/06/17 15:14 229 Mean Platelet Volume 06/06/17 15:14 10.9 High Neutro Auto 06/06/17 15:14 65.9 Lymph Auto 06/06/17 15:14 27.5 Kemper Auto 06/06/17 15:14 5.4 Eos Auto 06/06/17 15:14 0.6 Basophil Auto 06/06/17 15:14 0.6 Neutro Absolute 06/06/17 15:14 9.4 High Lymph Absolute 06/06/17 15:14 3.9 Kemper Absolute 06/06/17 15:14 0.8 Eos Absolute 06/06/17 15:14 0.1 Baso Absolute 06/06/17 15:14 0.1 Routine Chemistry LATEST RESULTS Sodium Lvl 06/06/17 15:14 135 Potassium Lvl 06/06/17 15:14 3.6 Chloride 06/06/17 15:14 108 CO2 06/06/17 15:14 22 Anion Gap 06/06/17 15:14 9 Glucose Lvl 06/06/17 15:14 94 BUN 06/06/17 15:14 9 Creatinine Lvl 06/06/17 15:14 0.69 eGFR AA 06/06/17 15:14 >60 eGFR Non-AA 06/06/17 15:14 >60 BUN Crea Ratio 06/06/17 15:14 13.0 Low Bili Total 06/06/17 15:14 0.4 Alk Phos 06/06/17 15:14 72 AST 06/06/17 15:14 18 ALT 06/06/17 15:14 13 Low Total Protein 06/06/17 15:14 7.8 Albumin Lvl 06/06/17 15:14 3.9 AG Ratio 06/06/17 15:14 1.0 Low Calcium Lvl 06/06/17 15:14 8.9 Lipase Lvl 06/06/17 15:14 19 Low Testing LATEST RESULTS Urine Preg 06/06/17 15:14 Negative UA Macroscopic LATEST RESULTS UA Source 06/06/17 15:14 Clean Catch UA Color 06/06/17 15:14 Yellow UA Clarity 06/06/17 15:14 Hazy UA Spec Grav 06/06/17 15:14 1.024 UA pH 06/06/17 15:14 5.0 UA Protein 06/06/17 15:14 Negative UA Glucose 06/06/17 15:14 Negative UA Bili 06/06/17 15:14 Negative UA Urobilinogen 06/06/17 15:14 0.2 UA Leukocyte Esterase 06/06/17 15:14 Negative UA Nitrite 06/06/17 15:14 Negative UA Ketones 06/06/17 15:14 Negative UA Blood 06/06/17 15:14 Negative UA Microscopic LATEST RESULTS UA RBC Quant 06/06/17 15:14 1 UA WBC Quant 06/06/17 15:14 3 UA Mucus 06/06/17 15:14 Present Abnormal UA Squepi Cells Quant 06/06/17 15:14 9Diagnostic Results XRay No qualifying data available. Computerized Tomagraphy CT Abd Pelvis w/o IV Cont Stone Prot. 06/06/17 16:08:04 CT abdomen and pelvis without contrast 06/06/2017Clinical data is acute onset left lateral flank pain starting yesterday. Previous cholecystectomy and 2 C-sections. No prior known kidney stones.No comparison studies.TECHNIQUE: Axial images from above the kidneys to the pubic symphysis without any IV or oral contrast. Sagittal and coronal 2-D reconstructions.CT lung bases: The posterior lung bases are clear. No infiltrate or effusion. No hiatal hernia.CT abdomen findings:Negative for stone in the kidneys, ureters, or urinary bladder. Kidneys have normal size with no perinephric stranding. No obvious renal mass or cyst.Right upper abdomen cholecystectomy clips. The common bile duct measures 5 mm. Negative noncontrast liver, spleen, pancreas, adrenal glands, aorta, IVC. The top of the abdomen is not completely included. No evidence of hiatal hernia. Stomach and small bowel loops contain minimal fluid, no evidence for obstruction or significant inflammatory change of stomach or small bowel. Minimal fat at the umbilicus with no herniated bowel.CT pelvis findings:Positive for acute diverticulitis. There is focal wall thickening involving the mid to distal descending colon, with a single thick walled inflamed diverticulum off the posterior margin of the descending colon at a level near the iliac crest. There is hazy infiltration of the surrounding left flank fat, with a trace amount of fluid and mild thickening along the anterior left pararenal and lateral conal fascia below the kidney level. Extends to about mid pelvis level. No free air or abscess pocket. A couple additional noninflamed diverticula are also seen in that area.A normal appendix in the right lower quadrant, just below the top of the right iliac crest. Moderate residual stool and mild amount of gas in the proximal colon. Mild residual stool in the sigmoid colon and rectum. The diverticulitis is not appear to be causing a significant obstruction.The urinary bladder was moderately full, no wall thickening or stones. Uterus and both ovaries are present and have normal size and appearance. The uterus is anteverted and slightly levoverted and position. Scarring of the low anterior abdominal wall from C-sections. Numerous calcified fat necrosis areas across the right and left lower abdominal wall subcutaneous fat at the line. Several small right and left inguinal lymph nodes. No herniated bowel.CT bones:Mild anterior spurring T10/11. A very minimal anterior wedging of T11. No lumbar compression fracture. At L5/S1, there is minimal left and mild to moderate right facet degeneration without an obvious disc bulge. Prominent sclerosis of the posterior left iliac bone and around the left sacroiliac joint. Moderate sclerosis of the right iliac bone along the mid to inferior right SI joint and minimal sclerosis inferior right sacrum. Bilateral sacroiliac joint shows slight widening and slight vacuum degeneration. Small likely benign sclerotic density in the right femoral head.IMPRESSIONS:1. Positive for acute diverticulitis of the descending colon, no drainable abscess or free air.2. Negative for stones or obstruction.3. Old cholecystectomy and .4. Osteitis condensans ilii, severe left and moderate right.5. Report called to Dr. Luu in the ER at approximately 1550 hours 06/06/2017. Signed By: Re KHOURY, Alyssia Crawley No qualifying data available. Magnetic Resonance Imaging No qualifying data available. Blaine Rivers RElectronically signed by Young Washburn MD 06/06/2017 16:45 EDT Normal [facility] Lipaseon 06-06-2017 Lipase Lvl 19 IU/L Low 22-51 [facility] Comment on above: Performed By: #### L IP ####[place] [address] U hCG Qlon 06-06-2017 U Neg Cont Valid Normal [facility] Comment on above: Performed By: #### U PT ####[address] [address] U Pos Cont Valid Normal [facility] Comment on above: Performed By: #### U PT ####[place] [address] UA w Culture if Indon 2016 UA Blood Negative Normal Negative [facility] Comment on above: Performed By: #### U CI ####[address] [address] UA Clarity Hazy Normal [facility] Comment on above: Performed By: #### U CI ####[place] [id number] UA Leukocyte Esterase Negative Normal Negative [facility] Comment on above: Performed By: #### U CI ####[address] [address] UA Nitrite Negative Normal Negative [facility] Comment on above: Performed By: #### U CI ####[address] [address] UA pH 5.0 Normal 4.5 - 7.8 [facility] Comment on above: Performed By: #### U CI ####[address] [address] UA Protein Negative Normal Negative [facility] Comment on above: Performed By: #### U CI ####[address] [place] [address] UA Source Clean Catch Normal [facility] Comment on above: Performed By: #### U CI ####[address] [address] UA Spec Grav 1.024 Normal 1.003-1.035 [facility] Comment on above: Performed By: #### U CI ####[address] [address] UA Urobilinogen 0.2 mg/dL Normal 0.2 - 1.0 [facility] Comment on above: Performed By: #### U CI ####[address] [address] Urine, color Yellow Normal [facility] Comment on above: Performed By: #### U CI ####[address] [address] Urine, glucose Negative Normal Negative [facility] Comment on above: Performed By: #### U CI ####[address] [address] Urine, ketones presence Negative Normal Negative [facility] Comment on above: Performed By: #### U CI ####[address] [address] Urine, urobilinogen Negative Normal Negative [facility] Comment on above: Performed By: #### U CI ####[address] [address] Vital Signs Date Time Vital Sign Value Performing Clinician Doron lozada 07-16-2025 15:44-0400 Body height 157.5 cm Elizabeth Chavarriazer [employer]TE[employer]CE MECH[employer]IC[employer] WORKER Work Phone: [facility] 07-16-2025 15:44-0400 Body mass index (BMI) [Ratio] 46.93 kg/m2 Elizabethkaela Chavarriazer [employer]TENA[employer]CE MECH[employer]IC-[employer] WORKER Work Phone: [facility] 07-16-2025 15:44-0400 Body weight 116.39 kg Elizabethkaela Chavarriazer [employer] MA[employer]TENA[employer]CE MECH[employer]IC-[employer] OFF WORKER Work Phone: [facility] 07-16-2025 15:44-0400 Diastolic blood pressure 84 mm[Hg] Elizabeth Krbenitozer [employer]TENA[employer]CE MECH[employer]IC[employer] OFF WORKER Work Phone: [facility] 07-16-2025 15:44-0400 Systolic blood pressure 136 mm[Hg] Elizabeth Deonzer [employer]TENAN[employer] MECH[employer]IC[employer] OFF WORKER Work Phone: [facility] 06-12-2024 11:10-0400 Body mass index (BMI) [Ratio] 43.97 kg/m2 [facility] 06-12-2024 11:10-0400 Body weight 109.05 kg [facility] 06-12-2024 11:10-0400 Diastolic blood pressure 72 mm[Hg] [facility] 06-12-2024 11:10-0400 Systolic blood pressure 116 mm[Hg] [facility] 02-20-2024 07:30-0400 Body temperature 97.9 [degF] PHYSICIAN NO [facility] 02-20-2024 07:30-0400 Diastolic blood pressure 66 mm[Hg] PHYSICIAN NO [facility] 02-20-2024 07:30-0400 Heart rate 54 /min PHYSICIAN NO [facility] 02-20-2024 07:30-0400 Respiratory rate 16 /min PHYSICIAN NO [facility] 02-20-2024 07:30-0400 SaO2% (BldA) [Mass fraction] 96 % PHYSICIAN NO [facility] 02-20-2024 07:30-0400 Systolic blood pressure 130 mm[Hg] PHYSICIAN NO [facility] 02-19-2024 08:32-0400 Body height 157.48 cm PHYSICIAN NO [facility] 02-18-2024 09:00-0400 Body weight 98.4 kg PHYSICIAN NO [facility] Encounters Encounter Date Encounter Type Care Provider Facility Start: 07-16-2025 End: 07-16-2025 Patient encounter procedure Elizabeth Meehan Napoleon [employer] WORK[employer] Work Phone: [facility] Start: 07-16-2025 End: 07-16-2025 Periodic preventive med est patient 40-64yrs Elizabeth Meehan Napoleon [employer]TE[employer]CE MECH[employer]IC[employer] WORKER [facility] Phone: [facility] Comment on above: Well woman exam with routine gynecological exam (Primary Dx); Screening mammogram for breast cancer; Abnormal uterine bleeding (AUB); Standardized adult depression screening tool completed Start: 07-16-2025 End: 07-16-2025 ambulatory [facility] Start: 07-16-2025 Encounter for gynecological examination (general) (routine) without abnormal findings [facility] Start: 11-10-2024 End: 11-10-2024 Emergency department patient visit NO PCP NO PCP [facility] Start: 06-13-2024 End: 06-13-2024 ambulatory [facility] Start: 06-12-2024 End: 06-12-2024 Initial preventive medicine new patient 40-64yrs [facility] Ob Registered Nurse [facility] Comment on above: Well woman exam with routine gynecological exam (Primary Dx); Encounter for screening mammogram for malignant neoplasm of breast; Cervical smear, as part of routine gynecological examination; Does not have primary care provider; Standardized adult depression screening tool completed Start: 06-12-2024 End: 06-12-2024 Patient encounter procedure [facility] Registered Nurse [facility] Start: 06-12-2024 End: 06-12-2024 ambulatory [facility] Start: 06-12-2024 End: 06-12-2024 Encounter for gynecological examination (general) (routine) without abnormal findings [facility] Registered Nurse [facility] Start: 05-17-2024 End: 05-17-2024 Emergency department patient visit NO PCP NO PCP [facility] Start: 05-14-2024 ambulatory PHYSICIAN NO [facility] ility:[facility] Start: 02-18-2024 Non-patient / Non-visit PHYSICIAN NO [facility] Work Phone: Start: 02-17-2024 End: 02-20-2024 Evaluation and management of inpatient PHYSICIAN NO [facility] Work Phone: Start: 02-17-2024 End: 02-17-2024 Emergency department patient visit NO PCP NO PCP [facility] Start: 02-17-2024 Encounter for other general examination TERI BUTLER [facility] Start: 02-04-2024 End: 02-05-2024 Emergency department patient visit IBETH FAJARDO [facility] Start: 04-05-2022 Encounter for preprocedural cardiovascular examination [facility] Start: 04-03-2022 End: 04-03-2022 ambulatory [facility] Facility:[facility] Start: 03-30-2022 End: 03-31-2022 ambulatory [facility] Facility:[facility] Start: 03-30-2022 End: 03-31-2022 Encounter for preprocedural cardiovascular examination [facility] Facility:[facility] Start: 03-07-2022 End: 03-08-2022 ambulatory JONNY MAGUIRE Facility:[facility] Start: 02-28-2022 End: 02-28-2022 ambulatory HELGA ELLISON Facility:[facility] Start: 07-28-2021 End: 07-29-2021 ambulatory JONNY MAGUIRE Facility:[facility] Start: 06-06-2017 End: 06-06-2017 Emergency department patient visit YOUNG LUU Facility:[facility] Procedures Date Procedure Procedure Detail Performing Clinician Start: 07-16-2025 Adult depression scr eening assessment Elizabeth Blackwood [employer] WORK[employer] Work Phone: Start: 06-12-2024 Adult depression scr eening assessment [facility] Registered Nurse Start: 06-12-2024 Microscopic observat ion [Identifier] in Cervix by Cyto stain Elizabeth Blackwood [employer]TE[employer] MECH[employer]IC[employer] WORK[employer] Work Phone: Start: 02-11-2018 Microscopic observat ion [Identifier] in Cervix by Cyto stain [facility] Registered Nurse Plan of Treatment Date Care Activity Detail Author Start: 03-02-2028 DTaP,Tdap and Td Vaccines (7 - Td or Tdap) DTaP,Tdap and Td Vaccines (7 - Td or Tdap) [facility] Start: 06-12-2027 Screening for malign ant neoplasm of cervix Pap Smear [facility] Start: 07-16-2026 Adult BMI Follow Up Plan Adult BMI Follow Up Plan [facility] Start: 07-16-2026 Adult BMI Screening Adult BMI Screen ing [facility] Start: 07-16-2026 Depression Screening Depression Scre ening [facility] Start: 07-16-2026 Tobacco Screening Tobacco Screening [facility] Start: 07-31-2025 End: 07-31-[address] [facility] - Mammography/DEXA Imaging Start: 07-20-2025 Influenza vaccination Influenza Vacc ine [facility] Start: 07-16-2025 End: 07-16-2026 DBT Breast - bilateral screening Mammography screening bilateral with CAD Imaging Routine Screening mammogram for breast cancer Expected: 07/16/2025, Expires: 07/16/2026 [facility] Work Phone: Comment on above: Expected: 07/16/2025 , Expires: 07/16/2026 Start: 07-16-2025 End: 07-16-2026 US Pelvis transabdominal and transvaginal Ultrasound pelvic with transvaginal Imaging Routine Abnormal uterine bleeding (AUB) Expected: 07/16/2025, Expires: 07/16/2026 [facility] Comment on above: Expected: 07/16/2025 , Expires: 07/16/2026 Start: 06-12-2025 Adult BMI Follow Up Plan Adult BMI Follow Up Plan [facility] Start: 06-12-2025 Adult BMI Screening Adult BMI Screen ing [facility] Start: 06-12-2025 Depression Screening Depression Scre ening [facility] Start: 06-12-2025 Tobacco Screening Tobacco Screening [facility] Start: 08-08-2024 End: 08-08-2024 Patient encounter procedure 08/08/2024 11:00 AM EDT [facility] [address] [place] [phone] Pamella Simpson [employer] MECH[employer] WORKER [address] [place] [phone] [facility] Start: 07-20-2024 COVID-19 Vaccine ( season) COVID-19 Vaccine ( season) [facility] Start: 07-20-2024 Influenza vaccination Influenza Vacc ine [facility] Start: 06-13-2024 End: 06-13-2024 Patient encounter procedure 06/13/2024 11:[address] [facility] - Mammogram DEXA [address] [place] [phone] Elizabeth Edwards, [employer] MAINTENANCE MECHANIC-[employer] WORKER [address] [place] [address] 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 [facility] Start: 02-17-2024 Hospital admission [facility] Start: 07-20-2023 COVID-19 Vaccine ( season) COVID-19 Vaccine ( season) [facility] Start: 02-11-2021 Screening for malign ant neoplasm of cervix Pap Smear [facility] Start: 1983 Tobacco Counseling Tobacco Counselin g [facility] End: 07-17-2026 CBC panel - Blood by Automated count CBC without diff Lab Routine Abnormal uterine bleeding (AUB) 1 Occurrences starting 07/16/2025 until 07/17/2026 [facility] Comment on above: 1 Occurrences starti ng 07/16/2025 until 07/17/2026 End: 06-12-2025 Cytopathology procedure, preparation of smear, genital source Pap Smear Pathology and Cytology Routine Cervical smear, as part of routine gynecological examination 1 Occurrences starting 06/12/2024 until 06/12/2025 [facility] [place] Comment on above: 1 Occurrences starti ng 06/12/2024 until 06/12/2025 End: 06-12-2025 High risk HPV w/amanda High risk HPV w/amanda Lab Routine Cervical smear, as part of routine gynecological examination 1 Occurrences starting 06/12/2024 until 06/12/2025 [facility] Comment on above: 1 Occurrences starti ng 06/12/2024 until 06/12/2025 Patient Education Depression, Ad ult (DC) [facility] Behavioral Health DC Instructions [facility] Work Phone: Patient referral [facility] Work Phone: End: 07-16-2026 Thyroid profile includes TSH FT4 Thyroid profile includes TSH FT4 Lab Routine Abnormal uterine bleeding (AUB) 1 Occurrences starting 07/16/2025 until 07/16/2026 [facility] Comment on above: 1 Occurrences starti ng 07/16/2025 until 07/16/2026 Immunizations Immunization Date Immunization Notes Care Provider Anne mendez 11-04-2018 influenza virus vacc ine, unspecified formulation Pfws Registered Nurse [facility] 03-02-2018 tetanus toxoid, redu marvin diphtheria toxoid, and acellular pertussis vaccine, adsorbed Pf Registered Nurse [facility] Payers Date Payer Category Payer Self-pay 2017 Unknown 2003 Medicaid [place] [employer] [place] [employer] [id number] 2003-Present [phone] [address] [place] [id number] 2003 Medicaid [place] [id number] 1983 Unknown [id number] [id number] 1983 Unknown [id number] 2.16.840.1.823043.3.579.2.593 1983 Unknown [id number] 2.16.840.1.839885.3.579.2.593 1983 Unknown [id number] 2.16.840.1.916165.3.579.2.593 1983 Unknown [id number] 2.16.840.1.156979.3.579.2.593 1983 Unknown [id number] 2.16.840.1.822027.3.579.2.1286 1983 Unknown [id number] 2.16.840.1.526149.3.579.2.1286 1983 Unknown [id number] 2.16.840.1.768148.3.579.2.1286 1983 Unknown [id number] 2.16.840.1.135503.3.579.2.1286 1983 Unknown [id number] 2.16.840.1.391472.3.579.2.1286 1983 Unknown [id number] 2.16.840.1.455917.3.579.2.1286 1983 Unknown [id number] 2.16.840.1.110762.3.579.2.1286 1983 Unknown [id number] 2.16.840.1.548898.3.579.2.1286 1959 Unknown [id number] Unknown [id number] 2.16.840.1.085060.3.579.2.531 Unknown [id number] 2.16.840.1.688898.3.579.2.531 Social History Date Type Detail Facility Start: 02-18-2024 End: 01-17-2023 Tobacco smoking status SDIS Smoker (finding) [facility] Start: 1985 Sex Assigned At Female [facility] Start: 06-12-2024 [facility] Start: 06-12-2024 End: 07-16-2025 Tobacco use and exposure Smokeless tobacco non-user [facility] Start: 06-12-2024 Alcoholic beverage intake Current drinker of alcohol (finding) [facility] Start: 12-30-2020 End: 06-12-2024 History of Social function [facility] Start: 12-30-2020 End: 06-12-2024 Tobacco use panel [facility] Adolescent depressio n screening assessment 2 [facility] Start: 08-22-2021 Alcohol Comment Rarely [facility] Start: 12-19-2023 Gender identity Identifies as female gender (finding) [facility] Start: 12-19-2023 Sexual orientation Heterosexual (fin ding) [facility] Start: 07-16-2025 Tobacco smoking stat us [facility] Ex-smoker [facility] End: 01-17-2023 History of tobacco use Cigarette Smoker [facility] History of tobacco use Tobacco U se Types Packs/Day Years Used Date Smoking Tobacco: Former Cigarettes 1 1 Quit: 01/17/2023 Vaping/E-cigarettes Smokeless Tobacco: Never [facility] Start: 07-16-2025 Alcoholic beverage intake Ex-drinker (finding) [facility] Start: 06-24-2015 Sex Female (finding) [facility] Goals Date Patient Goal Desired Activity /State Functional Status Date Assessment Result Facility 07-16-2025 Patient Health Quest ionnaire 2 item (PHQ-2) [Reported] [facility] 07-16-2025 Little interest or p eli in doing things More than half the days 07/16/2025 1:47 PM EDT Mychart, Generic More than half the days [facility] 07-16-2025 Feeling down, depres sed, or hopeless More than half the days 07/16/2025 1:47 PM EDT Mychart, Generic More than half the days [facility] 07-16-2025 Trouble falling or s taying asleep, or sleeping too much More than half the days 07/16/2025 1:47 PM EDT Mychart, Generic More than half the days [facility] 07-16-2025 Feeling tired or hav ing little energy Several days 07/16/2025 1:47 PM EDT Mychart, Generic Several days [facility] 07-16-2025 Poor appetite or overeating Karena ral days 07/16/2025 1:47 PM EDT Mychart, Generic Several days [facility] 07-16-2025 Feeling bad about yourself-or that you are a failure or have let yourself or your family down More than half the days 07/16/2025 1:47 PM EDT Mychart, Generic More than half the days [facility] 07-16-2025 Trouble concentratin g on things, such as reading the newspaper or watching television Not at all 07/16/2025 1:47 PM EDT Mychart, Generic Not at all [facility] 07-16-2025 Moving or speaking s o slowly that other people could have noticed. Or the opposite - being so fidgety or restless that you have been moving around a lot more than usual Not at all 07/16/2025 1:47 PM EDT Mychart, Generic Not at all [facility] 07-16-2025 Thoughts that you wo uld be better off , or of hurting yourself in some way Not at all 07/16/2025 1:47 PM EDT Mychart, Generic Not at all [facility] 07-16-2025 How difficult have t hese problems made it for you to do your work, take care of things at home, or get along with other people? Somewhat difficult 07/16/2025 1:47 PM EDT Mychart, Generic Somewhat difficult [facility] 02-20-2024 Functional status [facility] at [facility] Work Phone: [facility] Mental Status Date Assessment Result Facility 02-20-2024 Cognitive function Cognitive Sta tus Patient at [facility] Work Phone: Clinical Notes 02-28-2022 to 07-16-2025 Elizabeth Blackwood, [facility] - 07/16/2025 3:30 PM Nasir Edwards, [facility] - 06/12/2024 11:00 AM EDT Note Date & Type Note Facility 07-16-2025 History of Present illness Narrative Annual Well Woman Visit 07/16/2025 Malka Meek is a pleasant 39 y.o. 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 Periods are irregular, lasting 5 days. Dysmenorrhea: severe, occurring throughout menses. Cyclic symptoms include anxiety, heavy bleeding and severe cramping. Days 2 and 3 and very heaviest per patient, and she has previously had an ablation 11/2018 and her periods never went away. Has intermenstrual bleeding. No pelvic pain. Patient declined STD testing today. Complaints today: [...] past medical history, past social history, past surgical history and problem list. MEDICAL HX Past Medical History: Diagnosis Date Ankle fracture Anxiety Depression 04/2005 SAB (spontaneous ) SURGICAL HX Past Surgical History: Procedure Laterality Date ARTHROSCOPY KNEE. REMOVAL CYST ON ACL Right 06/19/2018 Performed by Chucky Salter DO at [facility] SECTION 2004, 2011 2 CHOLECYSTECTOMY CYSTECTOMY D&C HYSTEROSCOPY WITH NOVASURE ABLATION N/A 12/18/2018 Performed by Elizabeth Casey MD at [facility] DILATION AND CURETTAGE N/A 12/18/2018 Performed by Elizabeth Casey MD at [facility] DILATION AND CURETTAGE OF UTERUS 2 [...] kg (256 lb 9.6 oz) BMI 46.93 kg/m Physical Exam Vitals and nursing note reviewed. [...] profile includes TSH FT4; Future - [facility] [place] [place] - Consult; Future Standardized adult depression screening tool completed Patient desires hysterectomy consult. We discussed referral to [facility]. BMI is above average; Discussed eating tips for weight loss and and exercise steps. Recommend breast self-awareness. Notify provider for any breast changes or concerns Discussed healthy lifestyle modifications. Educational material distributed. Follow up in 1 year for annual transition coach exam. Follow up as needed. Next pap due 2028 per ASCCP guidelines. Discussed taking a multivitamin. Discussed Calcium and Vitamin D for prevention of osteoporosis. Discussed recommendations for HPV vaccine between 9-45 yo. [facility] be [facility] at [facility] or the [facility]. Discussed need for yearly mammogram after 40 yo. Discussed colon cancer screening recommendations to begin at 45 yo, patient to discuss with PCP. All questions answered. MARY RÍOS APRN-CNP Lisa M Krotzer, APRN-CNP 07/16/25 1614 documented in this encounter [facility] 06-12-2024 History of Present illness Narrative Annual Well Woman Visit 06/12/2024 Malka Meek is a 38 y.o. female new patient who presents for annual transition coach exam. Periods are regular every 28-30 days, lasting 5 days. Dysmenorrhea: severe, occurring first 1-2 days of flow. Cyclic symptoms include moodiness and pelvic pain. No intermenstrual bleeding, spotting, or abnormal discharge. No pelvic pain. Patient declines STD testing today. Complaints today: none Relationship status: in a relationship The patient reports that there is not domestic violence in her life. Sexually active: Yes Sexual concerns: no Patient vapes daily IF Yes , motivated to quit YES Children YES How many Two c-sections Current contraception: tubal ligation History of abnormal Pap smear: yes - negative/+other HR HPV Last pap: 01/2618 Regular self breast exam: yes Last mammogram: n/a Family history of breast cancer: yes - maternal aunt in her 30s and grandmother in her 50s Family history of uterine or ovarian cancer: no Family history of pancreatic or prostate cancer: no Family history of colon cancer: no HPV vaccinated: no PHQ9 depression screenin LMP 06/11/2024 OB History 3 Para 2 Term 2 AB 1 Living 2 SAB 1 IAB Ectopic Multiple Live Births 2 The following portions of the patient's history were reviewed and updated as appropriate: allergies, current medications, past family history, past medical history, past social history, past surgical history and problem list. MEDICAL HX Past Medical History: Diagnosis Date Ankle fracture Anxiety Bipolar 2 disorder (CMS-HCC) COVID-06 June 2021 SAB (spontaneous ) SURGICAL HX Past Surgical History: Procedure Laterality Date ARTHROSCOPY KNEE. REMOVAL CYST ON ACL Right 06/19/2018 Performed by Chucky Salter DO at [facility] SECTION 2004, 2011 2 CHOLECYSTECTOMY CYSTECTOMY D&C HYSTEROSCOPY WITH NOVASURE ABLATION N/A 12/18/2018 Performed by Elizabeth Casey MD at [facility] DILATION AND CURETTAGE N/A 12/18/2018 Performed by Elizabeth Casey MD at [facility] DILATION AND CURETTAGE OF UTERUS 2 TUBAL LIGATION FAMILY HX Family History Problem Relation Age of Onset Heart attack Paternal Grandfather Hypertension Paternal Grandfather Hypertension Paternal Grandmother Breast cancer Maternal Grandmother Leukemia Maternal Grandmother Hypertension Maternal Grandmother Heart attack Maternal Grandfather Hypertension Maternal Grandfather Heart attack Mother Heart disease Mother Hypertension Mother Obesity Father Cancer Sister fallopian tube cancer MEDS Current Outpatient Medications Medication Sig Dispense Refill brexpiprazole (REXULTI) 1 mg tablet Take 1 tablet (1 mg total) by mouth in the morning. 30 tablet 3 busPIRone (BUSPAR) 10 mg tablet Twice Daily at 0900 and 1400 hydrOXYzine (VISTARIL) 50 mg capsule Q6H cyclobenzaprine (FLEXERIL) 10 mg tablet Take 1 tablet (10 mg total) by mouth 2 (two) times a day as needed for muscle spasms. (Patient not taking: Reported on 06/12/2024) 10 tablet 0 venlafaxine XR (EFFEXOR XR) 150 mg 24 hr capsule Take 1 capsule (150 mg total) by mouth in the morning. (Patient not taking: Reported on 06/12/2024) 30 capsule 3 No current facility-administered medications for this visit. ALLERGIES No Known Allergies Review of Systems Review of Systems Constitutional: Negative. Respiratory: Negative. Negative for chest tightness and shortness of breath. Cardiovascular: Negative. Negative for chest pain and palpitations. Gastrointestinal: Negative. Negative for constipation, diarrhea, nausea and vomiting. Endocrine: Negative. Genitourinary: Negative. Negative for dyspareunia, menstrual problem and pelvic pain. Musculoskeletal: Negative. Skin: Negative. Allergic/Immunologic: Negative. Neurological: Negative. Hematological: Negative. Psychiatric/Behavioral: Negative. Objective BP 116/72 Wt 109 kg (240 lb 6.4 oz) LMP 06/11/2024 (Exact Date) BMI 43.97 kg/m Physical Exam Vitals and nursing note reviewed. [...] Well woman exam with routine gynecological exam Encounter for screening mammogram for malignant neoplasm of breast - Mammography screening bilateral with CAD; Future Cervical smear, as part of routine gynecological examination - High risk HPV w/amanda; Future - Pap Smear; Future Does not have primary care provider - Ambulatory Referral to [facility] Primary Care; [facility] Standardized adult depression screening tool completed BMI is above average; Discussed eating tips for weight loss and and exercise steps. Breast self exam technique reviewed and patient encouraged to perform self-exam monthly. Discussed healthy lifestyle modifications. Educational material distributed. Follow up in 1 year for annual transition coach exam. Follow up as needed. Await pap. Discussed ASCCP guidelines. Discussed taking a multivitamin. Encouraged cessation of vaping. Discussed Calcium and Vitamin D for prevention of osteoporosis. Discussed recommendations for HPV vaccine between 9-45 yo. Can be received at [employer] or the [employer] department. Discussed need for yearly mammogram after 40 yo. Discussed colon cancer screening recommendations to begin at 45 yo, patient to discuss with PCP. All questions answered. MYNOR Chowdary APRN-CNP Lisa M Franco, APRN-CNP 06/12/24 1147 documented in this encounter [facility] 02-20-2024 Discharge summary Note Date/Time February 20, 2024 8:56am [facility] [address] [place] [address] Discharge Summary Signed Patient: Yulissa Meek MR#: [id number] : 1985 Acct:[id number] Age/Sex: 38 / F Adm Date: 4 Loc: Room: [address] [place] [address]: Chriss Morris MD Copies to: Chriss Morris MD NO FAMILY PHYSICIAN~ Providers Date of Discharge: 02/20/24 Discharging Provider: Chriss Morris Primary Care Provider: PHYSICIAN NO FAMILY Consults: 02/17/24 23:00 Consult to Case Management Routine Comment: CM Reason for Consult: Other Other and/or Abuse/Neglect Consult Reasons: routine Discharge Diagnosis (1) MDD (major depressive disorder), recurrent episode: Final Diagnosis Final Discharge Diagnosis: MDD Summary Hospital Course Hospital course: According to admission note: Ms. Meek is a 38 year old female with a reported history of bipolar disorder and depression who presents for inpatient treatment due to concern for suicidal ideation with plan. Reportedly, [place] after her sister called the police to report that she had madecomments of taking a whole bottle of trazodone. On drug screen patient was found to be positive for THC and cocaine. Patient was transferred and admitted to [facility] for worsening depression and suicidal ideations. At the time of the interview, she presents as anxious and depressed. Patient states that she just wants to go home and that she is stressed because she needsto find a place for her daughter to stay while she is here. Patient states thatyesterday she was pushed to the edge and had texted her sister out of frustration that she would take a whole bottle of trazodone. Her sister then contacted the police who brought her to the ED in [place]. She states that she willingly was admitted to 1 S. She reports multiple life stressors including financial strain due to being the only paying member at her household, her mom passing away last year, and being unemployed. Patient states that she has seen apsychiatrist in the past and he started her on Rexulti and Effexor. She states that they were helpful but then she was unable to continue seeing her psychiatrist and maintaining her treatment regimen. Per nurse's note on admission patient wants to get help and is willing to participate in treatment, but recently she has increased her drug use of crack cocaine, has increased financial stressors due to recently losing her job, and that she has a history of self harming behavior with cutting. Past psych history: Reports bipolar 1 disorder, depression Past hospitalizations: Denies previous hospitalizations Past suicide attempts: Denies previous suicidal attempts, but states she has made superficial attempts such as using glass on her hand as well as other self-harm behaviors. Previous medications: Reports Rexulti and Effexor and trazodone. Family history: States that her younger sister has bipolar, bryce, multiple personalities disorder. States that her brother has schizophrenia, bipolar, bryce. States mother had depression. Alcohol and Drug Use: Reports alcohol use as occasional with the recent use being last Sunday. Reports THC, cocaine, crack with last use being this past . Reports tobacco use - vapes daily. Living: Lives in a house with 6 other people. Employment: Unemployed Patient was restarted on previously tolerated medications of Effexor and Rexulti. BuSpar was added to help manage her anxiety. She tolerated the medication and showed improvement. She started to socialize with peers and attended groups. She did not report any further depression or suicidality during her hospitalization. She reported that she only made those statements because her sister was making her angry. Her sleep and appetite were normal during her hospitalization. On the day of discharge, she reported she is feeling better. She denied any depression or suicidality. She stated that she was looking forward to spending time with her daughter. She denied any side effects of the medication and stated that she would continue it and follow-up with outpatient services. Time spent discussing smoking cessation with patient: 3 to 10 minutes Condition Condition at Discharge: Stable Status at Discharge Cognitive/behavioral status at discharge: Mental Status Exam: Appearance: grossly normal Mental Status: mental status grossly normal Mood: Euthymic mood Affect: Normal affect Speech and Movement: speech and movement normal and speech clear Attitude: cooperative Thought Process: normal Thought Content: Denied hallucinations, no homicidality and no suicidality Insight: Good Judgment: Good Functional status at discharge: independent ambulation Overall status at discharge: patient is back to baseline Time Spent with Patient Time spent providing/coordinating discharge services (# min): 30 Exam Physical Exam Vital Signs: Temp Pulse Resp BP Pulse Ox O2 Del Method 97.9 F 54 L 16 130/66 96 Room Air 02/20/24 07:30 02/20/24 07:30 02/20/24 07:30 02/20/24 07:30 02/20/24 07:30 02/20/24 07:30 Discharge Plan Discharge Plan Patient Disposition: Home Activity: No Activity Restriction Diet: Regular Additional Instructions: Important Contact Information You can call [facility] at [phone] any time day or night if you have emergent questions or question regarding discharge instructions. If at any time you are feeling an increase inyour psychiatric symptoms, call your physician or behavioral healthcare provider. If any time you have thoughts of harming yourself or others contact one of the following: Call 88 (available 11/06) Crisis Text Line (available 11/06) text 4HOPE to [phone] [facility] Hope Line (available 8 a.m. Midnight) call [phone] ([phone]) Instructions: Depression, Adult (DC), [facility] Behavioral Health DC Instructions Prescriptions: New Rexulti 1 mg Tablet 1 mg PO DAILY 30 Days Qty: 30 0RF buspirone 10 mg Tablet 10 mg PO BID.9A.2P Qty: 60 0RF ergocalciferol (vitamin D2) 1,250 mcg (50,000 unit) Capsule 1,250 mcg PO Tu@0900 28 Days Qty: 4 0RF venlafaxine 75 mg Capsule,Extended Release 24hr 75 mg PO DAILY 30 Days Qty: 30 0RF nicotine 21 mg/24 hr Patch 24 Hour 21 mg transdermal DAILY Qty: 15 0RF Follow Up: [facility], [Other] - 02/22/24 9:00 am (Appointment with Edie Chowdary NP on Sunday02/22/24 at 9:00am Appointment with therapist Abril Das on Sunday03/19/24 at 10:15am) [facility] [Outside] (Please contact for any medical needs or concerns.) Documented By: Chriss Morris MD 02/20/24 0856 Signed By: <Electronically signed by Chriss Morris MD> 02/20/24 8734 [facility] Work Phone: 1(366) 417-695204-03-2024 Hospital Discharge instructions Additional Instructions Important Contact Information You can call [facility] at [phone] any time day or night if you have emergent questions or question regarding discharge instructions. If at any time you are feeling an increase in your psychiatric symptoms, call your physician or behavioral healthcare provider. If any time you have thoughts of harming yourself or others contact one of the following: Call 98-8 (available 11/06) Crisis Text Line (available 11/06) text 4HOPE to [phone] [facility] Line (available 8 a.m. Midnight) call [phone] ([phone]) [facility] Work Phone: 1(271) 194-917504-02-2024 Progress note Author Chriss Morris [facility] February 19, 2024 1:42pm Note Date/Time February 19, 2024 10:1 0am [facility] [address] [place] [address] Psychiatry Progress Note Signed Patient: Yulissa Meek MR#: [id number] : 1985 Acct:[id number] Age/Sex: 38 / F Adm Date: 4 Loc: Room: [address] [place] [address] Type : ADM IN Attending Dr: Chriss Morris MD Copies to: ~ Date of Service: 02/19/2024 Subjective Subjective Narrative: Today patient states that she just wants to go home and that being here is making her feel anxious. She states that at home she is not anxious she is justoverwhelmed. She feels like her anxiety has peaked to a 10/10 here but currentlyit is at a 5/10 because she took her morning meds. Patient also states she is not sleeping well and the trazodone isn't working. She reports waking up throughout the night. At one point she tried to ask for a nicotine patch at 4am but was not allowed to have one which made her annoyed. She states she doesn't have tobacco cravings, but more that she doesn't have anything to do and vaping is something for her to do. She states that she is eating well and has a good appetite. She states attending group sessions which she thinks are going okay. She states the medications here are working to keep her anxiety at bay. Denies depression, SI, HI, Hallucinations. Mental Status Exam Appearance: Grossly normal Mental Status: Grossly normal Mood: Anxious Affect: Anxious Attitude: Cooperative Speech/Movement: Speech clear. Speech movement normal Thought Process: Normal Thought Content: Reports anxiety. Denies Depression, SI, HI, hallucinations. Insight: Fair Judgment: Fair Patient was personally seen by me on the day of the encounter. I reviewed the history and performed the anaya elements of the physical examination. I formulated the plan of care and confirmed this with the medical student as notedbelow. Exam Physical Exam Vital Signs: Temp Pulse Resp BP Pulse Ox O2 Del Method 98.0 F 66 18 136/86 96 Room Air 02/19/24 07:30 02/19/24 07:30 02/19/24 07:30 02/19/24 07:30 02/19/24 07:30 02/19/24 07:30 Assessment/Plan Assessment/Plan (1) MDD (major depressive disorder), recurrent episode: Plan Patient reported doing good today. Anticipate discharge tomorrow Continue Effexor 75 mg and Rexulti 1 mg Continue BuSpar 10 mg twice a day for anxiety Continue to monitor mental status Encourage group participation and medication compliance Risk benefits alternatives explained Documented By: Chriss Morris MD 02/19/24 1004 Signed By: <Electronically signed by Chriss Morris MD> 02/19/24 1342 [facility] Work Phone: 1(538) 950-349304-01-2024 History and physical note Author Chriss Morris [facility] February 18, 2024 1:37pm Note Date/Time February 18, 2024 12:2 8pm [facility] [address] [place] [address] Psychiatry H&P Signed Patient: Yulissa Meek MR#: [id number] : 1985 Acct:[id number] Age/Sex: 38 / F Adm Date: 4 Loc: 1S Room: 6C3035-7 Type: ADM IN Attending Dr: Chriss Morris MD Copies to: Chriss Morris MD NO FAMILY PHYSICIAN~ Date of Service: 02/18/2024 HPI History of Present Illness History of present illness: Ms. Meek is a 38 year old female with a reported history of bipolar disorder and depression who presents for inpatient treatment due to concern for suicidal ideation with plan. Reportedly, patient presented to the ER in [place] after hersister called the police to report that she had made comments of taking a whole bottle of trazodone. On drug screen patient was found to be positive for THC and cocaine. Patient was transferred and admitted to [facility] for worsening depression and suicidal ideations. At the time of the interview, she presents as anxious and depressed. Patient states that she just wants to go home and that she is stressed because she needsto find a place for her daughter to stay while she is here. Patient states thatyesterday she was pushed to the edge and had texted her sister out of frustration that she would take a whole bottle of trazodone. Her sister then contacted the police who brought her to the ED in [place]. She states that she willingly was admitted to [facility]. She reports multiple life stressors including financial strain due to being the only paying member at her household, her mom passing away last year, and being unemployed. Patient states that she has seen apsychiatrist in the past and he started her on Rexulti and Effexor. She states that they were helpful but then she was unable to continue seeing her psychiatrist and maintaining her treatment regimen. Per nurse's note on admission patient wants to get help and is willing to participate in treatment, but recently she has increased her drug use of crack cocaine, has increased financial stressors due to recently losing her job, and that she has a history of self harming behavior with cutting. Past psych history: Reports bipolar 1 disorder, depression Past hospitalizations: Denies previous hospitalizations Past suicide attempts: Denies previous suicidal attempts, but states she has made superficial attempts such as using glass on her hand as well as other self- harm behaviors. Previous medications: Reports Rexulti and Effexor and trazodone. Family history: States that her younger sister has bipolar, bryce, multiple personalities disorder. States that her brother has schizophrenia, bipolar, bryce. States mother had depression. Alcohol and Drug Use: Reports alcohol use as occasional with the recent use being last Sunday. Reports THC, cocaine, crack with last use being this past weekend. Reports tobacco use - vapes daily. Living: Lives in a house with 6 other people. Employment: Unemployed Review of symptoms: Constitutional: Denies chills and Denies fever(s) Eyes: Denies change in vision ENT: Denies abnormal hearing Cardiovascular: Denies chest pain Respiratory: Denies chest congestion and Denies cough Gastrointestinal: Denies change in bowel habits Genitourinary: Denies dysuria Musculoskeletal: Reports pain and numbness in her neck/back side of her head on the left. Integumentary/Breasts: Denies dry skin. Notes bruises on knuckles of right handand palmar side of left hand. Neurologic: Denies abnormal gait and Denies abnormal movements Psychiatric: Reports anxiety, depression. Denies suicidal ideation, homicidal ideation, and hallucinations Physical exam: Const: Cooperative Nutritional Appearance: average body habitus Orientation: alert, awake and oriented x3 HEENT: Head normal to inspection, hearing grossly normal bilaterally, external nose normal, face symmetric. Sensitive and painful to light palpation of the left occiput. Eyes: appearance normal, both eyes and all related structures, sclerae normal Neck: normal visual inspection and full ROM Resp: normal respiratory effort, able to speak in complete sentences and symmetric chest movement Cardio: regular rate GI: normal to inspection and non-distended : deferred Skin: no rashes or lesions noted. Bruises noted on the knuckles of her right hand and on the palmar side of her left hand and left wrist. Scar is noticeableon arms from previous self-harm behavior. Neuro: CNI: Normal olfaction CNI: normal olfaction CNII: Visual schultz intact, CNIII,IV,: EOM intact, no nystagmus. Pupils equal, round, reactive to light and accommodation, CNV: Sensation intact to light touch, CNVII: Raises eyebrows, smile/frown, puff out cheeks symmetrically, CNVIII: Hearing intact bilaterally, CNIX,X: Voice normal, soft palate elevation normal, symmetrical, CNXI: Shoulder shrug strong, equal bilaterally, CNXII: Tongue protrusion midline, movement symmetrical. Extrem: normal to inspection and full ROM Mental Status Exam: Appearance: Grossly normal Mental Status: Grossly normal Mood: Depressed, anxious Affect: Labile Speech and Movement: Speech clear. Speech and movement normal. Attitude: Cooperative Thought Process: Linear Thought Content: Reports anxiety, depression. Denies SI, HI, hallucinations Insight: Fair Judgment: Fair Patient was personally seen by me on the day of the encounter. I reviewed the history and performed the anaya elements of the physical examination. I formulated the plan of care and confirmed this with the medical student as notedbelow. Patient presented due to concern for depression and suicidal ideation. Had toldher sister that she wanted to overdose on trazodone. She reported that she has been previously on medications but has not had any in many years. She is open to restarting her medications and reported having a lot of issues with her anxiety as well. [facility] Medical History (Updated 02/18/24 @ 13:36 by Chriss Morris MD) No pertinent past medical history Surgical History (Updated 02/17/24 @ 23:03 by Higinio Clifton RN) No pertinent past surgical history Family History (Updated 02/17/24 @ 23:03 by Higinio Clifton RN) Other No significant family history Social History Smoking Status: Current every day smoker Tobacco Type: cigarettes Substance Use Type: Marijuana, Crack and Cocaine Meds Medications and Allergies Allergies No Known Allergies Allergy (Verified 02/17/24 21:02) Home Medications No known home meds 02/17/24 [History Confirmed 02/17/24] Exam Physical Exam Vital Signs: Temp Pulse Resp BP Pulse Ox O2 Del Method 98.0 F 62 20 118/78 98 Room Air 02/18/24 07:30 02/18/24 07:30 02/18/24 07:30 02/18/24 07:30 02/18/24 07:30 02/18/24 09:00 Assessment/Plan (1) MDD (major depressive disorder), recurrent episode: Plan Admit to for management of depression and to ensure safety of self due to SI. Recently posted that she was going to overdose on trazodone Will restart Effexor 75 mg and Rexulti 1 mg Will try BuSpar 10 mg twice a day for anxiety Continue to monitor mental status Encourage group participation and medication compliance Risk benefits alternatives explained Documented By: Chriss Morris MD 02/18/24 1018 Signed By: <Electronically signed by Chriss Morris MD> 02/18/24 1337 [facility] Work Phone: 1(301) 746-263205-16-2022 NotePROCEDURE: XR ANKLE RT MIN 3 VIEWS HISTORY: Postoperative care COMPARISON: XR ankle right 03/07/2022, XR ankle bilateral 04/03/2022 FINDINGS: BONES:No fracture, acute abnormality, or significant arthropathy. SOFT TISSUES:Skin farhad lateral to the ankle. Images were obtained through cast material which slightly limits evaluation. EFFUSION:None visible. OTHER: Negative. IMPRESSION: 1. Post arthroscopy. No acute bone abnormality. Electronically authenticated by: ANDRÉS HANNA Date: 2022-04-03 13:18[facility]04-19-2022 NotePROCEDURE: XR ANKLE RT MIN 3 VIEWS, XR FOOT RT MIN 3 VIEWS HISTORY: Pain of right ankle joint ; acute pain after walking, no known injury COMPARISON: XR ankle and foot right 02/28/2022 FINDINGS: BONES:Evidence of remote surgical hardware placement and removal within the distal fibula. No fracture, dislocation, bone lesion. SOFT TISSUES:Mild lateral soft tissue swelling. EFFUSION:None visible. OTHER: Negative. IMPRESSION: 1. Mild swelling suggesting soft tissue injury. 2. No acute bone abnormality. Electronically authenticated by: ANDRÉS HANNA Date: 2022-03-07 12:45[facility]04-19-2022 NotePROCEDURE: XR ANKLE RT MIN 3 VIEWS, XR FOOT RT MIN 3 VIEWS HISTORY: Pain of right ankle joint ; acute pain after walking, no known injury COMPARISON: XR ankle and foot right 02/28/2022 FINDINGS: BONES:Evidence of remote surgical hardware placement and removal within the distal fibula. No fracture, dislocation, bone lesion. SOFT TISSUES:Mild lateral soft tissue swelling. EFFUSION:None visible. OTHER: Negative. IMPRESSION: 1. Mild swelling suggesting soft tissue injury. 2. No acute bone abnormality. Electronically authenticated by: ANDRÉS HANNA Date: 2022-03-07 12:45[facility]04-12-2022 NotePROCEDURE: XR FOOT RT MIN 3 VIEWS, XR ANKLE RT MIN 3 VIEWS HISTORY: Acute pain due to injury COMPARISON: XR foot right 03/22/2021, XR ankle right 03/22/2021 FINDINGS: BONES:No fracture, dislocation, bone lesion. Evidence of prior surgical repair of distal fibula with subsequent hardware removal. Small calcaneal plantar spur. Minimal degenerative changes of the first metatarsophalangeal joint. SOFT TISSUES:Soft tissue swelling surrounding the ankle and proximal foot. EFFUSION:None visible. OTHER: Negative. IMPRESSION: 1. Moderate swelling suggesting soft tissue injury. 2. No acute bone abnormality. Electronically authenticated by: ANDRÉS HANNA Date: 2022-02-28 15:51[facility]04-12-2022 NotePROCEDURE: XR FOOT RT MIN 3 VIEWS, XR ANKLE RT MIN 3 VIEWS HISTORY: Acute pain due to injury COMPARISON: XR foot right 03/22/2021, XR ankle right 03/22/2021 FINDINGS: BONES:No fracture, dislocation, bone lesion. Evidence of prior surgical repair of distal fibula with subsequent hardware removal. Small calcaneal plantar spur. Minimal degenerative changes of the first metatarsophalangeal joint. SOFT TISSUES:Soft tissue swelling surrounding the ankle and proximal foot. EFFUSION:None visible. OTHER: Negative. IMPRESSION: 1. Moderate swelling suggesting soft tissue injury. 2. No acute bone abnormality. Electronically authenticated by: ANDRÉS HANNA Date: 2022-02-28 15:51[facility]* Diagnosis Onset Date Resolution Status MDD (major depressive disorder), recurrent episode acute [facility] Work Phone: Evaluation note* Diagnosis Well woman exam with routine gynecological exam- Primary Routine gynecological examination Encounter for screening mammogram for malignant neoplasm of breast Cervical smear, as part of routine gynecological examination Screening for malignant neoplasm of the cervix Does not have primary care provider Standardized adult depression screening tool completed [facility] Diagnosis Well woman exam with routine gynecological exam- Primary Routine gynecological examination Screening mammogram for breast cancer Abnormal uterine bleeding (AUB) Standardized adult depression screening tool completed [facility] this [facility]* Attachments The following attachments cannot be sent through Care Everywhere. * Calcium and vitamin D for bone health ([place]i) * Mammography ([place]) [facility]* Attachments The following attachments cannot be sent through Care Everywhere. * Health risks of obesity ([place]) * Calcium and vitamin D for bone health ([place]) [facility] SystemReason for referral (narrative)* Consultation (Routine) - Pending Review Specialty Diagnoses / Procedures Referred By Jeremías vázquez Referred To Contact Diagnoses Does not have primary care provider Elizabeth Edwards, [facility] [address] [place] [address] Referral ID Status Reason Start Date Expiration Date V isits Requested Visits Authorized [id number] Pending Review 06/12/2024 06/12/2025 1 1 [facility] Summary Purpose Family History No Family History Records Found Relationship Condition Age at Onset Recorded Date/T brandie Not Specified No pertinent family history Unknown Advance Directives No Advanced Directives Records Found Advance Directive Response Recorded Date/ Time Advance Directives No February 16 8:42pm Chief Complaint and Reason for Visit Chief Complaint MDD MDD Reason for Visit MDD (major depressiv e disorder), recurrent episode Additional Source Comments INFORMATION SOURCE (unrecogn ized section and content) DATE CREATED AUTHOR 05/15/2018 [facility] DATE CREATED AUTHOR AUTHOR'S ORGANIZ ATION 04/12/2022 [facility] DATE CREATED AUTHOR AUTHOR'S ORGANIZ ATION 07/18/2024 [facility] DATE CREATED AUTHOR AUTHOR'S ORGANIZ ATION 11/13/2024 [facility] DATE CREATED AUTHOR AUTHOR'S ORGANIZ ATION 07/18/2025 [facility] Care Teams (unrecognized sec tion and content) Team Status: Active Member Role Status Dates PHYSICIAN NO FAMILY Primary Care Provider Active Team Status: Inactive Member Role Status Dates PHYSICIAN NO FAMILY Primary Care Provider Active Start: February 17, 2024 End: February 20, 2024 Chriss Morris MD Admit Provider, Attcamila bravo Provider Active Start: February 17, 2024 End: February 20, 2024 Team Status: Active Member Role Status Dates PHYSICIAN NO FAMILY Primary Care Provider Active Start: February 18, 2024 Chriss Morris MD Admit Provider, Atte nding Provider, Other Provider Active Start: February 18, 2024 Cyber Engineer Relationship Specialty Start Date End Date No Pcp, [place] [address] PCP - General Family Medicine 05/17/24 Cyber Engineer Relationship Specialty Start Date End Date No Pcp, [place] [address] PCP - General Family Medicine 05/17/24 Reason for Visit (unrecogniz ed section and content) Reason Comments Annual Exam FOR RECORDS PERTAINING TO PATIENTS WHO ARE OR HAVE BEEN ENROLLED IN A CHEMICAL DEPENDENCY/SUBSTANCEABUSE PROGRAM, SOME INFORMATION MAY BE OMITTED. This clinical summary was aggregated from multiple sources. Caution should be exercised in using it in the provision of clinical care. This summary normalizes information from multiple sources, and as a consequence, information in this document may materially change the coding, format and clinical context of patient data. In addition, data may be omitted in some cases. CLINICAL DECISIONS SHOULD BE BASED ON THE PRIMARY CLINICAL RECORDS. [facility]. provides no warranty or guarantee of the accuracy or completeness of information in this document.
--- NOTE | 2025-07-29 19:05 | ECG_ITS ---
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: : 1985 Requested By: Christian Shoemaker Order Number: [id number] Reading MD: SANCHO JIANG Measurements Intervals [place] Rate: 60 P: 38 WA: 218 QRS: -27 QRSD: 96 T: 29 QT: 424 QTc: 424 Interpretive Statements 1100 Sinus rhythm 2231 First degree AV block 2420 RSR (QR) in lead V1/V2, consistent with right ventricular conduction delay [address] depression 7202 Moderate left axis deviation 8102 Low QRS voltage in chest leads 9150 abnormal ECG Compared to ECG 03/30/2022 10:48:07 Low QRS voltage now present Sinus bradycardia no longer present ST (T wave) deviation still present Electronically Signed On 07-30-2025 14:06:16 EDT by SANCHO JIANG
--- NOTE | 2025-07-29 20:22 | XR_ITS ---
[facility] [place] [id number] Patient Name: GO NORTH MRN: [id number] date: 1985 Sex: F Assigned Patient Location: ED.MAIN Current Patient Location: ED.MAIN Accession/Order Number: [id number] Exam Date: 07/29/2025 21:00 Report Date: 07/29/2025 21:32 At the request of: CLARITZA PERKINS Procedure: XR chest 2V PA AND LATERAL CHEST: CLINICAL HISTORY: cough COMPARISON: None FINDINGS: Unremarkable cardiomediastinal silhouette. Lungs are clear. No effusion or pneumothorax. XR/XR chest 2V IMPRESSION: NO ACUTE CARDIOPULMONARY ABNORMALITY. Impression dictated by: Barrington Collazo M.D. 07/29/2025 9:32 PM Dictation Location: [place] [address] Electronically authenticated by: [id number] Y Date: 07/29/2025 21:32
--- NOTE | 2025-07-29 20:24 | ED_ITS ---
HPI - Chest Pain General Chief Complaint: Chest Pain Stated Complaint: Chest Pain Time Seen by Provider: 07/29/25 19:09 Source: patient Mode of arrival: walk-in Limitations: no limitations History of Present Illness HPI narrative: 39-year-old female presents to the ED with acute onset sharp chest pain this morning while lying on the couch. Pain was initially 8/10, now 2/10, described as achy, with no radiation. Denies trauma, shortness of breath, lightheadedness, dizziness, nausea, vomiting, or other systemic symptoms. She reports a nonproductive cough for the past few days that has been worsening but does not correlate with the chest pain. She is a former smoker. Family history notable for maternal cardiac disease. No personal history of hypertension or hyperlipidemia. Pain is not relieved or worsened by activity or position changes, and she has not taken any medications for it. Related Data Previous Rx's ?Medication ?Instructions ?Recorded albuterol sulfate 90 mcg/actuation 2 inh inhalation Q8 H PRN 07/29/25 aerosol inhaler bronchospasm #8.5 grams prednisone 20 mg tablet 20 mg PO DAILY 11 days #11 t abs 07/29/25 Allergies Allergy/AdvReac Type Severity Reaction Status Date / Time No Known Drug Allergies Allergy Verified 07/29/25 18:56 PFSH PFSH Social History Little interest or pleasure in doing things: not at all Feeling down, depressed, or hopeless: several days Exam Narrative Exam Narrative: General: Patient alert, oriented ?3, in mild discomfort. Cardiac: Heart sounds normal, regular rate and rhythm, no murmurs, rubs, or gallops. Pulmonary: Diffuse wheezing throughout lung schultz, no rales or crackles. HEENT: Normal. Abdomen: Soft, non-tender, no rebound or guarding. Extremities: No edema, pulses equal bilaterally. Neuro / Mental Status: Alert, oriented ?3. Constitutional Vital Signs, click to edit/add: Last Vital Signs Temp 98.3 F 07/29/25 18:57 Pulse 72 07/29/25 21:20 Resp 28 H 07/29/25 21:20 BP 122/78 07/29/25 20:31 Pulse Ox 96 07/29/25 21:20 O2 Del Method Room Air 07/29/25 20:38 Course Vital Signs Vital signs: Vital Signs Temperature 98.3 F 07/29/25 18:57 Pulse Rate 69 07/29/25 18:57 Respiratory Rate 18 07/29/25 18:57 Blood Pressure 135/77 07/29/25 18:57 Pulse Oximetry 98 07/29/25 18:57 Temperature 98.3 F 07/29/25 18:57 Pulse Rate 72 07/29/25 21:20 Respiratory Rate 28 H 07/29/25 21:20 Blood Pressure 122/78 07/29/25 20:31 Pulse Oximetry 96 07/29/25 21:20 Oxygen Delivery Method Room Air 07/29/25 20:38 MDM - Chest Pain MDM Narrative Medical decision making narrative: 39-year-old female presents with acute, non-radiating chest pain that has improved from 06/28 to 12/29, associated with a recent nonproductive cough. She is hemodynamically stable, and labs and chest X-ray are normal. Exam notable for diffuse wheezing without rales or crackles. Given the clinical presentation, acute coronary syndrome, pneumonia, and other serious cardiopulmonary pathology are unlikely. Findings are consistent with acute bronchitis. Patient is stable for discharge with supportive care, including inhaler use as needed, rest, hydration, and follow-up with primary care if symptoms persist or worsen. Return precautions discussed. Differential Diagnosis Differential diagnosis: Likely pneumothorax, atypical chest pain, st elevation myocardial infarction, costochondritis and chest pain Medical Records Data Attestation: I reviewed the patient's medical records. Lab Data Attestation: I reviewed the patient's lab results. Labs: Lab Results 07/29/25 Range/Units 20:33 WBC 11.6 H (4.0-11.0) 10^3/uL RBC 4.12 L (4.20-5.40) 10^6/uL Hgb 12.2 (12.0-16.0) g/dL Hct 35.4 L (36.0-48.0) % MCV 85.9 (81.0-99.0) fL MCH 29.6 (26.7-34.0) pg MCHC 34.5 (29.9-35.2) g/dL RDW 14.5 (11.0-15.0) % Plt Count 254 (150-450) 10^3/uL MPV 10.8 (9.5-13.5) fL Neut % (Auto) 46.9 (43.0-75.0) % Lymph % (Auto) 45.1 (20.5-60.0) % Hemphill % (Auto) 6.0 (1.7-12.0) % Eos % (Auto) 1.3 (0.9-7.0) % Baso % (Auto) 0.3 (0.2-2.0) % Neut # (Auto) 5.5 (1.4-6.5) 10^3/uL Lymph # (Auto) 5.2 H (1.2-3.8) 10^3/uL Hemphill # (Auto) 0.7 (0.3-0.8) 10^3/uL Eos # (Auto) 0.2 (0.0-0.7) 10^3/uL Baso # (Auto) 0.0 (0.0-0.1) 10^3/uL Abs Immat Gran (auto) 0.05 H (0.00-0.03) 10^3/uL Imm/Tot Granulo (auto) 0.4 (0.0-0.5) % Sodium 140 (136-145) mmol/L Potassium 3.8 (3.5-5.1) mmol/L Chloride 106 (98-107) mmol/L Carbon Dioxide 28.3 (21.0-32.0) mmol/L Anion Gap 9.5 BUN 12.0 (7.0-18.0) mg/dL Creatinine 0.78 (0.55-1.02) mg/dL Est GFR ( Amer) >60 (>=60 mL/min/1.73m^2) Est GFR (Non-Af Amer) >60 (>=60 mL/min/1.73m^2) BUN/Creatinine Ratio 15.4 Glucose 115 H (74-106) mg/dL Calcium 8.4 L (8.5-10.1) mg/dL Troponin I High Sens 6.0 (4.0-51.3) pg/mL Imaging Data Chest x-ray: Attestation: I have reviewed the pertinent imaging results. Radiologist's impression: ITS Impressions Chest X-Ray 07/29/25 20:22 IMPRESSION: NO ACUTE CARDIOPULMONARY ABNORMALITY. Impression dictated by: Barrington Collazo M.D. 07/29/2025 9:32 PM Dictation Location: [place] [address] Electronically authenticated by: [id number] Y Date: 07/29/2025 21:32 Heart Score History: Slightly/Non-Suspicious ECG: Normal Age: <45 years Risk Factors: 1 or 2 Risk Factors Troponin: <Normal Limit Total Heart Score Recommendations & Risks:: 1 Discharge Plan Discharge Chief Complaint: Chest Pain Clinical Impression: Bronchitis, Chest pain Patient Disposition: Home, Self-Care Time of Disposition Decision: 21:25 Condition: Good Prescriptions / Home Meds: New prednisone 20 mg tablet 20 mg PO DAILY 11 Days Qty: 11 0RF Rx Instructions: days 11-21 of therapy albuterol sulfate 90 mcg/actuation HFA aerosol inhaler 2 inh inhalation Q8H PRN (Reason: bronchospasm) Qty: 8.5 0RF Print Language: Kinyarwanda Instructions: Chest Pain (ED), Acute Bronchitis (ED) Additional Instructions: Diagnosis: Acute bronchitis (inflammation of the airways) Medications: * Use prescribed inhalers or nebulizers (e.g., albuterol) as directed to help open your airways. * Take [id number] pain or fever relievers such as acetaminophen (Tylenol) or ibuprofen (Motrin/Advil) as needed for chest discomfort or body aches. Home Care: * Rest and drink plenty of fluids to stay hydrated. * Avoid smoking or exposure to smoke or other irritants. * Use a humidifier or inhale steam to help ease coughing. * Cover your mouth when coughing to prevent spreading infection. Follow-Up: * Contact your primary care provider if symptoms persist longer than 2?3 weeks, or if your doctor advised follow-up. Return to the ED immediately if you develop: * Worsening shortness of breath or difficulty breathing * Chest pain that worsens or does not improve * High fever (>=01?F) or chills * Coughing up blood * Confusion or severe fatigue Expected Course: * Cough may last 2?3 weeks, sometimes longer. * Wheezing and mild shortness of breath may improve over several days with inhaler use. Referrals: Physician,Non-Staff, MD [Primary Care Provider] - 1 week
[2025-07-29] MEDS: PREDNISONE 20 MG TABLET 40 MG PO (20:34)
[2025-07-29] MEDS: IPRATROPIUM/ALBUTEROL SULFATE 3 ML AMPUL.NEB IH ×2 (20:38→21:48)
[2025-07-29 20:45] LABS: Hematocrit 35.4 % (36.0-48.0); Hemoglobin 12.2 g/dL (12.0-16.0); Immature Granulocytes Abs Auto 0.05 10^3/uL (0.00-0.03); Immature Granulocytes Pct Auto 0.4 % (0.0-0.5); Lymphocytes Absolute Auto 5.2 10^3/uL (1.2-3.8); Mean Corpuscular HGB Conc 34.5 g/dL (29.9-35.2); Mean Corpuscular Hemoglobin 29.6 pg (26.7-34.0); Mean Corpuscular Volume 85.9 fL (81.0-99.0); Platelet Count 254 10^3/uL (150-450); Red Blood Count 4.12 10^6/uL (4.20-5.40); White Blood Count 11.6 10^3/uL (4.0-11.0)
[2025-07-29 21:09] LABS: Anion Gap 9.5; Blood Urea Nitrogen 12.0 mg/dL (7.0-18.0); Calcium 8.4 mg/dL (8.5-10.1); Carbon Dioxide 28.3 mmol/L (21.0-32.0); Chloride 106 mmol/L (98-107); Estimated GFR (African America >60 (>=60 mL/min/1.73m^2); Estimated GFR (Non-African Ame >60 (>=60 mL/min/1.73m^2); Glucose 115 mg/dL (74-106); Potassium 3.8 mmol/L (3.5-5.1); Sodium 140 mmol/L (136-145)
--- NOTE | 2025-07-29 22:57 | PC.NURSE ---
i gave this patient verbal and written discharge orders along with 2 e-scripts and this patient voices yes to understanding these. at time of discharge this patient voices no concerns, needs and shows no signs of distress
== END 2025-07-29 22:57 | disposition home or self-care (01) ==
PROVIDERS: Physician Assistant; Emergency Provider Emergency Medicine
DX: J20.9 Acute bronchitis, unspecified (principal); R07.9 Chest pain, unspecified; Z87.891 Personal history of nicotine dependence
CPT/HCPCS: 36415; 71046; 80048; 84484; 85025; 93005; 94640; 99284; J7512